=== PATIENT | male | born 1940 | race Caucasian/White ===

== ENCOUNTER → 2017-03-06 | Day surgery (SDC) | payer OTHER ==
[~2017-03-06] VITALS: Ht 180.3 cm; Wt 65.5 kg
[~2017-03-06] MED LIST: ACET-1256 PO; ALBUAER2 INH; ASPI-232 PO; ATOR-26 PO; CEPH500C PO; CIPROFLOXACIN 500 MG TAB PO SCH; CONRAY 30% 150ML BOTTLE ONE; DXY100 PO; IPRA1AER2 INH; LPR25 PO; NICO14DI9 TOP; NRV5 PO; NTRGSL/4 UT; NUTR-977 PO; PRED10TA PO; ROSU40TA PO; UMEC1AER INH; VGR50 PO; VLTG EXT; VNTHFA/IN INH; cephalexin PO
[2017-03-06 10:32] VITALS: BP 153/76; PULSE 93; TEMP 36.2; O2SAT 95; Ht 180.3 cm; Wt 65.5 kg
--- NOTE | 2017-03-06 10:47 | History and Physical ---
History Date of Service: Mar 06, 2017. Chief Complaint: left ureteral obstruction Primary Care Physician: Carlos Ricks M.D. Pt seen a urologist before?: Yes If yes, why?: left ureteral obstruction History of Present Illness Patient presents for routine stent change. he has chronic obstruction and has been managed with stent changes for years. He prefers to be done awake. His last stent is very uncomfortable. Laboratory Labs were reviewed and are within normal limits unless listed below. Labs are available in the chart and at [facility] Problem List Medical Problems: (1) Abdominal pain Status: Acute (2) Cardiac ischemia Status: Acute (3) GI bleeding Status: Acute (4) Hyperlipidemia Status: Chronic (5) Hypertension Status: Chronic (6) Substernal chest pain Status: Acute Past History Past Medical History: COPD, coronary artery disease, hypertension, vascular disease (severe, many angioplasties and bypasses for leg arterial insufficiency) Pt had a problem w anesthesia?: No Past Surgical History: other (multiple vascular surgeries, cabg) Family History Heart disease Social History Hx Tobacco Use In Past Year?: Yes (1 ppd 50 yrs ) Smokin pack/day Alcohol: socially Drug use: none Marital status: Housing status: lives with family Occupation status: retired Immunizations History of Influenza Vaccine: No History of Tetanus Vaccine?: Unknown History of Pneumococcal: Yes Pneumococcal Date: Dec 02, 2008 History of Hepatitis B Vaccine: Unknown History of MDRO No Allergies Coded Allergies: Simvastatin (Verified Adverse Reaction, Unknown, N&V, 03/06/17) Medications Home Medications: Home Meds and Scripts Medications Dose Route/Sig Max Daily Dose Days Date Category Dose Instructions Aspir-81 (Aspirin) 81 Mg Tab 1 Tab PO QAM 03/12/16 Reported Nitrostat (Nitroglycerin) 0.4 Mg Tab 0.4 Mg UT UD PRN 05/04/14 Reported Ventolin (Albuterol) Inh 1-2 Puffs INH Q4 PRN 05/04/14 Reported Crestor (Rosuvastatin Calcium) 40 Mg Tab 40 Mg PO 2 X WK 05/04/14 Reported Keflex (Cephalexin Monohydrate) 500 Mg Cap 500 Mg PO TID 03/19/12 Reported CHRONIC USE DUE TO HISTORY OF GRAFT. Review of Systems Review of Systems Constitutional: No chills, No fever Neurological: No dizzy, No numbness/tingling Endocrine: No excessive thirst, No tired/sluggish, No too cold, No too hot Gastrointestinal: + abdominal pain, + indigestion, No constipation, No nausea, No vomiting Cardiovascular: No chest pain, No palpitations, No swelling ankles/feet Male : + blood in urine, + frequent urination, + nocturia more than once/ night, + painful urination Physical Exam Physical Exam: General Appearance: WD/WN, no apparent distress, + thin Eyes: bilateral eyes normal inspection ENT: hearing grossly normal Respiratory/Chest: lungs clear, no respiratory distress, no accessory muscle use, + decreased breath sounds Cardiovascular: regular rate, rhythm, no murmur Extremities: non-tender, normal inspection, no pedal edema, no calf tenderness , normal capillary refill Neurologic/Psychiatric: alert, normal mood/affect, oriented x 3 Skin: normal color, warm/dry, no rash Assessment & Plan Assessment & Plan left ureteral obstruction plan cysto left stent exchange cipro orally now we have special ordered a 22-32 centimeter bard 6 fr stent as this has proven to be the most comfortable for him. need fluoro he signed consent/
[2017-03-06 12:11] VITALS: BP 155/67; PULSE 80; TEMP 36.5; O2SAT 93
--- NOTE | 2017-03-06 12:17 | [facility] Operative Report ---
Operative Report Operative Date Mar 06, 2017. Pre-Operative Diagnosis Left ureteral stricture Post-Operative Diagnosis same Procedure(s) Performed cysto left stent exchange Surgeon Dr. Rochelle Grant Communications Consultant Surgeon(s) none Estimated Blood Loss none Findings tortuous course of left ureter, low lying left kidney Fluids none Specimens none per surgeon Drains 6 fr 22-32 bard double J stent Anesthesia none Complication(s) None Disposition same day surgery Indications chronic left ureteral stricture managed for many years with ureteral stents. Plan stent exchange. he prefers no anesthetic. Description of Procedure Patient was placed in low lithotomy position. His genitals were prepped and draped in sterile fashion. Time out held with team. I placed a 18 fr flexible cystoscope to bladder. The urethra is unremarkable. The prostate is trilobar occlusive but short. The UOs are in normal location. Stent is clean. I placed a road runner wire up left ureter along side stent. I then removed and replace cystoscope and grasped tip of stent and withdrew it and found it to be intact. I then passed a 5 fr catheter over the wire to the upper ureter. I injected 5mL of dye to delinieate the renal pelvis and calyces. The wire is all the way up and the kidney is low lying, 2 inches at least below the costal margin. I replaced wire and placed a 22-32 centimeter 6 Fr double Bard J stent easily. I left bladder full and concluded case. He tolerated procedure well. He transferred to recovery under my escort, in stable condition. Plan: Home today oral pain meds as needed stent change in 6 months or so ASA 3 clean contaminated case 38 seconds fluoro cipro antibiotic sustainable design consultant I attest to the content of the Intraoperative Record and any orders documented therein. Any exceptions are noted below.
--- NOTE | 2017-03-06 12:22 | Discharge Instructions ---
Discharge Instructions Date of Service Mar 06, 2017. Admission Reason for Admission: Left Ureteral Stricture Discharge Discharge Diagnosis / Problem: left ureteral stricture Discharge Goals Goal(s): Improve function Activity Recommendations Activity Limitations: resume your previous activity Lifting Limitations: none Exercise/Sports Limitations: none May Resume Sexual Activity: when tolerated Shower/Bathe: no limitations Driving or Machine Use: no limitations . Instructions / Follow-Up Instructions / Follow-Up we will call to arrange next stent exchange Discharge Diet Recommended Diet: Regular Diet Fluid Restriction: None Procedures Procedures Performed: Cystoscopy, Left Stent Exchange Pending Studies Studies pending at discharge: no Medical Emergencies . Who to Call and When: Medical Emergencies: If at any time you feel your situation is an emergency, please call 911 immediately. . Non-Emergent Contact Non-Emergency issues call your: Urologist ([phone]) Call Non-Emergent contact if: temperature is above 100.5 . . "Provider Documentation" section prepared by Rochelle Grant. VTE Core Measure Inpt VTE Proph given/why not?: SCD's [place] Drug Monitoring Program Search Results: patient reviewed within database, no issues identified
--- NOTE | 2017-03-06 12:32 | DIAGNOSTIC IMAGING REPORT ---
RETROGRADE INCLUDES KUB HISTORY: LT STENT EXCHANGE FLUOROSCOPY TIME: 38 seconds. FINDINGS: 7 fluoroscopic spot images were submitted for review. Initial images demonstrate a left ureteral stent, aorta bilateral stent graft repair, and lumbar spinal fusion. There is retrograde contrast opacification of the left renal collecting system demonstrating hydronephrosis. This is followed by left ureteral stent exchange. The stent appears to be in good position. IMPRESSION: Fluoroscopy provided for left ureteral stent exchange.. Electronically signed by: Mark Barraza M.D. 03/06/2017 12:31 PM Dictated Date/Time: 03/06/2017 12:27 PM
[2017-03-06 12:37] VITALS: BP 153/67; PULSE 80; TEMP 36.5; O2SAT 93
== END | disposition home or self-care (01) ==
LOC: C.ACU 10:12
PROVIDERS: ATTEND Urology
DX: N13.5 Crossing vessel and stricture of ureter without hydronephrosis (principal); N28.89 Other specified disorders of kidney and ureter; I10 Essential (primary) hypertension; E78.5 Hyperlipidemia, unspecified; F17.210 Nicotine dependence, cigarettes, uncomplicated

== ENCOUNTER 2017-03-23 04:12 | Inpatient (IN) | payer OTHER ==
[~2017-03-23] VITALS: Ht 180.3 cm; Wt 66.0 kg
[2017-03-23] VITALS (9 sets, daily range): BP systolic 107–167; BP diastolic 68–80; PULSE 68–81; TEMP 36.5–37; O2SAT 90–99; Ht 180.3 cm; Wt 66.0 kg
[~2017-03-23 04:12] MED LIST changes: -ACET-1256 PO; -ATOR-26 PO; -CIPROFLOXACIN 500 MG TAB PO SCH; -CONRAY 30% 150ML BOTTLE ONE; -DXY100 PO; -IPRA1AER2 INH; -LPR25 PO; -NICO14DI9 TOP; -NRV5 PO; -NUTR-977 PO; -PRED10TA PO; -UMEC1AER INH; -VGR50 PO; -VLTG EXT; -VNTHFA/IN INH; -cephalexin PO
[2017-03-23] MEDS ORDERED: VNTHFA/IN INH (04:32)
[2017-03-23] MEDS ORDERED: ALBUT/IPRATROP 3MG/0.5MG NEB 3 ML VIAL INH STA (04:39)
[2017-03-23] MEDS ORDERED: METHYLPREDNISOLONE 125 MG VIAL IV STA (04:39)
[2017-03-23 05:02] LABS: BASO % 0.1 %; BASO ABS # 0.01 K/uL (0-0.2); COMPLETE YES; EOS % 1.2 %; HEMATOCRIT 42.3 % (42-52); IG% 0.1 %; LYMPH % 11.7 %; LYMPH ABS # 0.79 K/uL (1.2-3.4); MEAN CELL VOLUME 95.3 fL (80-100); MEAN CORPUSCULAR HGB CONC 33.6 g/dl (32-36); MEAN PLATELET VOLUME 11.5 fL (7.4-10.4); MONO % 7.7 %; NEUT % 79.2 %; PLATELET COUNT 117 K/uL (130-400); RED BLOOD COUNT 4.44 M/uL (4.7-6.1); WHITE BLOOD COUNT 6.78 K/uL (4.8-10.8)
[2017-03-23 05:23] LABS: BUN/CREATININE RATIO 20.7 (10-20); CREATININE 1.4 mg/dl (0.60-1.40); POTASSIUM 4.5 mmol/L (3.5-5.1)
[2017-03-23 05:28] LABS: ALB/GLOB RATIO 0.9 (0.9-2); CKMB/CK RATIO 2.7 (0-3.0)
[2017-03-23] MEDS ORDERED: NITROGLYCERIN 0.4 MG SL PER TAB CHARGE SL STA (05:42)
[2017-03-23] MEDS ORDERED: NITROGLYCERIN 0.4 MG SL PER TAB CHARGE ONE (05:48)
--- NOTE | 2017-03-23 06:38 | EMERGENCY ROOM VISIT NOTE ---
History Report prepared by Mary: Charisse Shah Under the Supervision of: Dr. Yadira Pettit D.O. First contact with patient: 04:23 Chief Complaint: RESPIRATORY PROBLEMS Stated Complaint: CAN'T BREATHE History of Present Illness The patient is a 77 year old male who presents to the Emergency Room with complaints of constant difficulty breathing beginning 3 days ago. The patient states that he has COPD and he was not able to sleep tonight so he decided to come in to the ED. He complains of sinus congestion, chest pain, "kidney pain", "lung pain", and a productive cough. He denies any abdominal pain. The patient denies taking steroids in the past and notes that he uses inhalers and has had pneumonia and bronchitis in the past. The patient reports that he drove himself here. Source of History: patient Onset: 3 days ago Position: other (respiratory) Quality: other ("difficulty") Timing: constant Associated Symptoms: No abdominal pain Note: He complains of sinus congestion, "kidney pain", "lung pain". Review of Systems See HPI for pertinent positives & negatives. A total of 10 systems reviewed and were otherwise negative. Past Medical & Surgical Medical Problems: (1) Aneurysm (2) ASCVD (arteriosclerotic cardiovascular disease) (3) Diverticulosis of colon (4) Femoral artery stenosis (5) Heart attack (6) Heart valve stenosis (7) History of cardioversion (8) Hx-TIA (transient ischemic attack) (9) Hyperlipidemia (10) Hypertension (11) Hypertension (12) Leakage of femoral arterial graft (13) Pacemaker (14) Thoracic aortic aneurysm (15) Unilateral inguinal hernia Surgical Problems: (1) Hx of CABG (2) Hx of CABG (3) S/P AAA repair Family History Heart disease Social History Smoking Status: Current Every Day Smoker Marital Status: Housing Status: lives with significant other Occupation Status: retired Current/Historical Medications Scheduled Aspirin (Aspir-81), 1 TAB PO QAM Cephalexin Monohydrate (Keflex), 500 MG PO TID Rosuvastatin Calcium (Crestor), 40 MG PO 2 X WK Scheduled PRN Albuterol Hfa (Ventolin Hfa), 1-2 PUFFS INH Q4 PRN for SOB/Wheezing Nitroglycerin (Nitrostat), 0.4 MG UT UD PRN for Chest Pain Allergies Coded Allergies: Simvastatin (Verified Adverse Reaction, Unknown, N&V, 03/23/17) Physical Exam Vital Signs Date Time Temp Pulse Resp B/P Pulse Ox O2 Delivery O2 Flow Rate FiO2 03/23/17 07:56 78 20 124/67 98 Nasal Cannula 1.0 03/23/17 07:44 99 Nasal Cannula 1.0 03/23/17 06:00 77 24 129/58 96 Nasal Cannula 2.0 03/23/17 05:50 82 20 138/65 98 Room Air 03/23/17 04:38 81 03/23/17 04:37 94 Nasal Cannula 2.0 03/23/17 04:35 89 Room Air 03/23/17 04:17 36.5 106 24 128/80 92 Room Air Physical Exam HEENT: Head - normocephalic and atraumatic Pupils are equal, round, and reactive to light. Extraocular eye muscles are intact, and sclera are anicteric. Nose - moist nasal mucosa without discharge. Mouth - moist buccal mucosa. Oropharynx is nonerythematous and there is no tonsillar exudate or edema noted. Neck: Supple; no JVD, nuchal rigidity, cervical lymphadenopathy. Heart: Regular rate and rhythm. There is a normal S1 and S2 with no murmurs, clicks, or gallops appreciated. Lungs: Rhonchi and wheezes in all lung martinez. Abdomen: Soft, completely nontender, nondistended, with good bowel sounds. There are no palpable pulsatile masses or hepatosplenomegaly. There is no guarding, rigidity, or rebound noted. Extremities: No evidence of cyanosis, clubbing, or edema. There are easily palpable peripheral pulses. Skin: warm and dry with good turgor and no rashes. Medical Decision & Procedures ER Provider Diagnostic Interpretation: X-ray results as stated below per interpretation by me: CHEST X-RAY: Cardiac pacemaker in place, chronic interstitial changes, no pleural effusions. Laboratory Results 03/23/17 04:45 Red Blood Count 4.44, Mean Corpuscular Volume 95.3, Mean Corpuscular Hemoglobin 32.0, Mean Corpuscular Hemoglobin Concent 33.6, Mean Platelet Volume 11.5, Neutrophils (%) (Auto) 79.2, Lymphocytes (%) (Auto) 11.7, Monocytes (%) (Auto) 7.7, Eosinophils (%) (Auto) 1.2, Basophils (%) (Auto) 0.1, Neutrophils # (Auto) 5.37, Lymphocytes # (Auto) 0.79, Monocytes # (Auto) 0.52, Eosinophils # (Auto) 0.08, Basophils # (Auto) 0.01 Test 03/23/17 04:45 White Blood Count 6.78 K/uL (4.8-10.8) Red Blood Count 4.44 M/uL (4.7-6.1) Hemoglobin 14.2 g/dL (14.0-18.0) Hematocrit 42.3 % (42-52) Mean Corpuscular Volume 95.3 fL (80-100) Mean Corpuscular Hemoglobin 32.0 pg (25-34) Mean Corpuscular Hemoglobin Concent 33.6 g/dl (32-36) Platelet Count 117 K/uL (130-400) Mean Platelet Volume 11.5 fL (7.4-10.4) Neutrophils (%) (Auto) 79.2 % Lymphocytes (%) (Auto) 11.7 % Monocytes (%) (Auto) 7.7 % Eosinophils (%) (Auto) 1.2 % Basophils (%) (Auto) 0.1 % Neutrophils # (Auto) 5.37 K/uL (1.4-6.5) Lymphocytes # (Auto) 0.79 K/uL (1.2-3.4) Monocytes # (Auto) 0.52 K/uL (0.11-0.59) Eosinophils # (Auto) 0.08 K/uL (0-0.5) Basophils # (Auto) 0.01 K/uL (0-0.2) RDW Standard Deviation 50.2 fL (36.4-46.3) RDW Coefficient of Variation 14.3 % (11.5-14.5) Immature Granulocyte % (Auto) 0.1 % Immature Granulocyte # (Auto) 0.01 K/uL (0.00-0.02) Total Bilirubin 0.4 mg/dl (0.2-1) Aspartate Amino Transf (AST/SGOT) 24 U/L (15-37) Alanine Aminotransferase (ALT/SGPT) 29 U/L (12-78) Alkaline Phosphatase 113 U/L (45-117) Total Creatine Kinase 102 U/L (39-308) Creatine Kinase MB 2.8 ng/ml (0.5-3.6) Creatine Kinase MB Ratio 2.7 (0-3.0) Pro-B-Type Natriuretic Peptide 1723 pg/ml (0-1800) Total Protein 7.6 gm/dl (6.4-8.2) Albumin 3.7 gm/dl (3.4-5.0) Globulin 3.9 gm/dl (2.5-4.0) Albumin/Globulin Ratio 0.9 (0.9-2) Laboratory results per my review. Medications Administered Medications (Trade) Dose Ordered Sig/Chelsey Route Start Time Stop Time Status Last Admin Dose Admin Albuterol/ Ipratropium (Duoneb) 3 ml NOW STAT INH 03/23/17 04:39 03/23/17 04:42 DC 03/23/17 04:57 3 ML Methylprednisolone Sodium Succinate (Solu-Medrol IV) 125 mg NOW STAT IV 03/23/17 04:39 03/23/17 04:42 DC 03/23/17 04:57 125 MG Nitroglycerin (Nitrostat Tab) 0.4 mg Q5M STAT SL 03/23/17 05:42 03/23/17 05:43 DC 03/23/17 05:45 0.4 MG Procedure 0439: Solu-Medrol IV 125mg IV, Duoneb 3ml INH. 0542: Nitrostat Tab 0.4mg SL. ECG Indication: SOB/dyspnea Rate (beats per minute): 77 Rhythm: normal sinus Findings: nonspecific-ST abn (Inferior and Lateral) Comparison ECG Date: 12/04/15 Change: no significant change ED Course 0430: Past medical records reviewed. The patient was evaluated in room B7. A complete history and physical exam was performed. Laboratory studies were drawn as above. 0439: Solu-Medrol IV 125mg IV, Duoneb 3ml INH. 0541: Breathing better after treatment but still has some chest pain. 0542: Nitrostat Tab 0.4mg SL. 0613: The patient's chest pain has gone away after the sublingual nitroglycerin. 0617: Discussed the patient's case with Dr. Mendez. The patient will be evaluated for further management. 0635: Upon reevaluation, I discussed findings and results with the patient. He verbalized agreement of the treatment plan. I spoke with Dr. Mendez of the [facility] Hospitalist Service. The patient will be evaluated for further management and care. Medical Decision The patient is a 77 year old male who presents to the ED with difficulty breathing. Differential diagnosis includes COPD exacerbation, pneumonia, bronchitics, hypoxia, CHF, sinus infection, and cardiac ischemia. LABS: No Leukocytosis Stable H&H BUN 29 Creatinine 1.4 Glucose 115 Troponin 0.021 BNP 1723 LFTs are Normal This is a 77-year-old male patient presents to the emergency department with multiple complaints including chest pain, shortness of breath, and urinary symptoms. EKG and cardiac enzymes were unremarkable. The patient had some improvement in his wrist trace symptoms with the IV Solu-Medrol and the nebulizer treatments. However, the patient is hypoxic without supplemental oxygen. I discussed the case with the hospitalist-Joo Hutson and they will evaluate for further management. Consults Time Called: 0615 Consulting Physician: Dr. Mendez Returned Call: 0617 Discussed the patient's case with Dr. Mendez. The patient will be evaluated for further management. Impression Primary Impression: Left sided chest pain Additional Impression: COPD exacerbation Scribe Attestation The scribe's documentation has been prepared under my direction and personally reviewed by me in its entirety. I confirm that the note above accurately reflects all work, treatment, procedures, and medical decision making performed by me. Departure Information Dispostion Being Evaluated By Hospitalist Referrals Carlos Ricks M.D. (PCP) Patient Instructions My [facility] Problem Qualifiers
--- NOTE | 2017-03-23 07:41 | DIAGNOSTIC IMAGING REPORT ---
CHEST 2 VIEWS ROUTINE CLINICAL HISTORY: Cough, wheeze, shortness of breath. COMPARISON STUDY: 09/18/2016 FINDINGS: The heart is normal in size. There are postsurgical changes of a midline sternotomy. There is a left subclavian dual-chamber central venous pacemaker. The patient is hyperinflated. There is subtle septal thickening which is likely chronic. There is no lobar consolidation. There are no pleural effusions.[ IMPRESSION: Hyperinflation. No evidence of focal pulmonary consolidation Electronically signed by: Alexandru Tellez M.D. 03/23/2017 7:39 AM Dictated Date/Time: 03/23/2017 7:37 AM
--- NOTE | 2017-03-23 07:51 | History and Physical ---
History & Physical Date & Time of Service: Mar 23, 2017 at 07:26 Chief Complaint: Can't Breathe Primary Care Physician: Carlos Ricks M.D. History of Present Illness Source: patient 77yo male with known COPD (dx about 2007) who presented early this AM with complaints of dyspnea, cough, congestion, yellow sputum production, and subjective fever starting Saturday of this week. No travel or sick contacts. No rigors. Last pm his breathing worsened considerably and he became even more dyspneic, prompting him to come to the ER at [facility]. This am he experienced some pain in his chest but this occurred while he was coughing. He notes that the chest discomfort was NOT similar to pain he had with a prior PA. He continues to smoke 1 ppd of cigarettes. Past Medical/Surgical History PMH: 1. COPD - dx about 2007 2. CAD s/p PA x 3 3. thoracic aortic aneurysm 4. chronic tobacco dependence 5. PAD 6. femoral artery stenosis s/p multiple surgeries 7. h/o TIA ? (but no stroke) 8. had seizure in 1985 9. h/o cardioversion (or defibrillation) in the setting of an acute PA 10. HTN 11. hyperlipidemia 12. 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 pacemaker implantation - Dr. Levi Panda - 2011 2. multiple surgeries on femoral artery 3 s/p CABG - [facility] 3-vessel 4. inguinal hernia repair 5. AAA repair 6. multiple back surgeries (3) 7. benign tumor removal from scalp 8. nasal surgery 9. left ureteral stent placement - multiple - (Dr. 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[employer]) Immunizations History of Influenza Vaccine: No History of Tetanus Vaccine?: Unknown History of Pneumococcal: Yes Pneumococcal Date: Dec 02, 2008 History of Hepatitis B Vaccine: Unknown Multi-Drug Resistant Organisms History of MDRO: No Allergies Coded Allergies: Simvastatin (Verified Adverse Reaction, Unknown, N&V, 03/23/17) Home Medications Scheduled Aspirin (Aspir-81), 1 TAB PO QAM Cephalexin Monohydrate (Keflex), 500 MG PO TID Rosuvastatin Calcium (Crestor), 40 MG PO 2 X WK Scheduled PRN Albuterol Hfa (Ventolin Hfa), 1-2 PUFFS INH Q4 PRN for SOB/Wheezing Nitroglycerin (Nitrostat), 0.4 MG UT UD PRN for Chest Pain Review of Systems Constitutional: + fatigue, + fever, + weight loss (10 pounds - last 6 weeks), No chills ENT: + nasal symptoms, No trouble swallowing Respiratory: + cough, + dyspnea at rest, + dyspnea on exertion, + shortness of breath, + sputum, + wheezing, No hemoptysis Cardiovascular: + chest pain, + orthopnea Abdomen: No GI bleeding, No diarrhea, No nausea, No pain, No vomiting Musculoskeletal: No joint pain Genitourinary - Male: + urinary frequency (nocturia - 3x's), No dysuria, No hematuria Neurologic: No memory loss, No numbness/tingling Psychiatric: No anxiety, No depression symptoms Endocrine: + fatigue Hematologic / Lymphatic: + abnormal bleeding/bruising Integumentary: No rash Physical Exam Vital Signs Date Time Temp Pulse Resp B/P Pulse Ox O2 Delivery O2 Flow Rate FiO2 03/23/17 06:00 77 24 129/58 96 Nasal Cannula 2.0 03/23/17 05:50 82 20 138/65 98 Room Air 03/23/17 04:38 81 03/23/17 04:37 94 Nasal Cannula 2.0 03/23/17 04:35 89 Room Air 03/23/17 04:17 36.5 106 24 128/80 92 Room Air General Appearance: + mild distress (only with coughing fits; otherwise NAD) Head: normocephalic, atraumatic Eyes: PERRL, sclerae normal ENT: hearing grossly normal, TMs normal, pharynx normal, + nasal congestion Neck: supple, no adenopathy, thyroid normal, no JVD, trachea midline, + pertinent finding (b/l carotid bruits) Respiratory/Chest: chest non-tender, no respiratory distress, no accessory muscle use, + decreased breath sounds, + rhonchi (extensive), + wheezing ( extensive) Cardiovascular: regular rate, rhythm, no gallop, + systolic murmur (2/6 RUSB and LUSB), + pertinent finding (large midline sternal scar) Abdomen/GI: normal bowel sounds, non tender, soft, no organomegaly, no pulsatile mass, + pertinent finding (large midline abdominal scar) Back: normal inspection Extremities/Musculoskelatal: no pedal edema Neurologic/Psych: no motor/sensory deficits, alert, normal mood/affect, normal reflexes, oriented x 3 Skin: no rash Lymphatic: no adenopathy (cervical) vascular/pulses - feet about 1+ b/l Diagnostics Laboratory Results Results Past 24 Hours Test 03/23/17 04:45 Range/Units White Blood Count 6.78 4.8-10.8 K/uL Red Blood Count 4.44 4.7-6.1 M/uL Hemoglobin 14.2 14.0-18.0 g/dL Hematocrit 42.3 42-52 % Mean Corpuscular Volume 95.3 80-100 fL Mean Corpuscular Hemoglobin 32.0 25-34 pg Mean Corpuscular Hemoglobin Concent 33.6 32-36 g/dl Platelet Count 117 130-400 K/uL Mean Platelet Volume 11.5 7.4-10.4 fL Neutrophils (%) (Auto) 79.2 % Lymphocytes (%) (Auto) 11.7 % Monocytes (%) (Auto) 7.7 % Eosinophils (%) (Auto) 1.2 % Basophils (%) (Auto) 0.1 % Neutrophils # (Auto) 5.37 1.4-6.5 K/uL Lymphocytes # (Auto) 0.79 1.2-3.4 K/uL Monocytes # (Auto) 0.52 0.11-0.59 K/uL Eosinophils # (Auto) 0.08 0-0.5 K/uL Basophils # (Auto) 0.01 0-0.2 K/uL RDW Standard Deviation 50.2 36.4-46.3 fL RDW Coefficient of Variation 14.3 11.5-14.5 % Immature Granulocyte % (Auto) 0.1 % Immature Granulocyte # (Auto) 0.01 0.00-0.02 K/uL Sodium Level 139 136-145 mmol/L Potassium Level 4.5 3.5-5.1 mmol/L Chloride Level 105 98-107 mmol/L Carbon Dioxide Level 28 21-32 mmol/L Anion Gap 6.0 3-11 mmol/L Blood Urea Nitrogen 29 7-18 mg/dl Creatinine 1.40 0.60-1.40 mg/dl Est Creatinine Clear Calc Drug Dose 40.8 ml/min Estimated GFR () 55.4 Estimated GFR (Non- 47.8 BUN/Creatinine Ratio 20.7 10-20 Random Glucose 115 70-99 mg/dl Calcium Level 9.0 8.5-10.1 mg/dl Total Bilirubin 0.4 0.2-1 mg/dl Aspartate Amino Transf (AST/SGOT) 24 15-37 U/L Alanine Aminotransferase (ALT/SGPT) 29 12-78 U/L Alkaline Phosphatase 113 45-117 U/L Total Creatine Kinase 102 39-308 U/L Creatine Kinase MB 2.8 0.5-3.6 ng/ml Creatine Kinase MB Ratio 2.7 0-3.0 Troponin I 0.021 0-0.045 ng/ml Pro-B-Type Natriuretic Peptide 1723 0-1800 pg/ml Total Protein 7.6 6.4-8.2 gm/dl Albumin 3.7 3.4-5.0 gm/dl Globulin 3.9 2.5-4.0 gm/dl Albumin/Globulin Ratio 0.9 0.9-2 Diagnostic Radiology cxr - hyperinflation, small heart shadow, no infiltrates (my reading) EKG EKG (my reading) - NSR, LVH by voltage criteria, rather large R wave V2, Q waves inferior leads, mild ST segment downsloping inferior leads (old/chronic), no acute ST changes; minimal ST segment downsloping 1 and AVL - also old/chronic Impression Assessment and Plan Pleasant 77yo male with numerous medical problems including COPD, CAD s/p multiple MIs, s/p CABG, PAD with multiple revascularization procedures on legs, pacemaker status, HTN, hyperlipidemia, CKD stage 3, and ongoing tobacco dependence presenting with acute hypoxic respiratory failure 2nd to COPD exacerbation. 1. acute hypoxic resp failure 2nd to COPD exacerbation - was loaded with IV solumedrol in the ER. Will continue IV steroids with 40mg IV q8h. Scheduled duonebs q6h. Incentive spirometry, mucinex, NC O2 as needed, check rapid flu test. Since there is no pneumonia on cxr but is having sputum production will use narrow spectrum antibiotics in the form of oral doxycycline 100mg BID. He has been counseled about the importance of smoking cessation. He is in the contemplative phase of such. 2. chest pain - his pain was not typical for his normal CAD pain. It occurred in the midst of a significant coughing spell. [id number] he had more chest discomfort in the ER requiring SL nitro with ultimate resolution of such. Will check 2 more troponins today and place on telemetry to be complete. 3. CAD - continue aspirin. Unsure why he is not on BB, etc. 4. CKD stage 3 - creatinine is at baseline. Repeat BMP in am for stability. 5. mild thrombocytopenia - check b12/folate today. Repeat platelets in 1-2 days for stability. 6. known PAD - continue aspirin, needs to quit smoking. 7. h/o seizure in the - does not take anti-epileptics. 8. DVT proph - lovenox 40mg daily. 9. HTN - well-controlled at this time OFF of any medication. 10. tobacco dependence - he declines any nicotine patch at this time. Counseled to quit. 11. weight loss - in light of extensive smoking history he needs work-up for this. Not unreasonable to perform CT chest in future to r/o malignancy. 12. h/o thoracic aortic aneurysm and h/o AAA - he reports repair of the AAA, but I am unclear if he has ever had repair of the former issue. Will look at outpatient records. 12/2015 CTA protocol of the chest demonstrated the thoracic aortic aneurysm and at that time was 6cm. 13. chronic keflex use - patient reports this is chronic suppressive therapy for ?infection of a graft in his femoral artery. He has had all of his PAD management at [facility] so I cannot confirm this. Regardless I will continue the keflex as he has been taking this chronically. Advanced Directives Existing Advance Directive: Yes Existing Living Will: Yes Existing Power of Shotblast Operator: Yes Resuscitation Status DO NOT RESUSCITATE VTE Prophylaxis VTE Risk Assessment Done? Y/N: Yes Risk Level: Moderate Given or contraindicated: Enoxaparin (Lovenox)SQ Social Service Consult None Apply Note total visit time about 60 minutes Additional Copies To Carlos Ricks M.D.
[2017-03-23] MEDS ORDERED: NITROGLYCERIN 0.4 MG SL PER TAB CHARGE SL PRN (08:15)
[2017-03-23] MEDS ORDERED: ACETAMINOPHEN 325 MG TAB PO PRN (08:15)
[2017-03-23] MEDS ORDERED: ALUMINUM/MAGNESIUM/SIMETH (MAALOX MAX) 30 ML UDC PO PRN (08:15)
[2017-03-23] MEDS ORDERED: BENZONATATE 100MG CAP PO PRN (08:15)
[2017-03-23] MEDS: ALBUT/IPRATROP 3MG/0.5MG NEB 3 ML VIAL INH SCH ×4 (08:15→19:52)
[2017-03-23] MEDS ORDERED: ONDANSETRON INJ 2 MG/ML 2 ML VIAL IV PRN (08:15)
[2017-03-23] MEDS ORDERED: MAGNESIUM HYDROXIDE SUSP 30 ML UDC PO PRN (08:15)
[2017-03-23 08:37] LABS: URINE APPEARANCE CLEAR (CLEAR); URINE BILIRUBIN NEG (NEG); URINE COLOR YELLOW; URINE EPITHELIAL CELL AUTO 20-30 /lpf (0-5); URINE NITRITE NEG (NEG); URINE SPECIFIC GRAVITY 1.014 (1.000-1.030); UROBILINOGEN NEG (NEG)
[2017-03-23 08:38] LABS: MANUAL MICROSCOPIC REQUIRED? NO; REVIEW REQ? NO; SULFASALICYLIC ACID POS (NEG)
[2017-03-23] MEDS ORDERED: ALBUT/IPRATROP 3MG/0.5MG NEB 3 ML VIAL INH PRN (08:45)
[2017-03-23] MEDS: ASPIRIN 81 MG ECTAB PO SCH (11:19)
[2017-03-23] MEDS: CEPHALEXIN MONOHYDRATE 500 MG CAP PO SCH ×3 (11:20→19:24)
[2017-03-23] MEDS: GUAIFENESIN 600 MG TABCR PO SCH ×2 (11:20→19:25)
[2017-03-23] MEDS: DOXYCYCLINE HYCLATE 100 MG CAP PO SCH ×2 (11:21→19:25)
[2017-03-23 11:38] LABS: PARTIAL THROMBOPLASTIN RATIO 1.2; PROTHROMBIN TIME (PATIENT) 10.4 SECONDS (9.0-12.0)
[2017-03-23] MEDS: LACTOBACILLUS ACIDOPHILUS (FLORANEX) TAB PO SCH ×2 (12:34→17:24)
[2017-03-23] MEDS: METHYLPREDNISOLONE IV 40 MG in SYRINGE 0 ML IV SCH ×2 (12:35→19:24)
[2017-03-23] MEDS: ENOXAPARIN 40 MG/0.4 ML SYR SC SCH (14:00)
[2017-03-24] VITALS (14 sets, daily range): BP systolic 132–189; BP diastolic 67–91; PULSE 0–92; TEMP 36.6–37; O2SAT 91–97
[2017-03-24] MEDS: METHYLPREDNISOLONE IV 40 MG in SYRINGE 0 ML IV SCH ×2 (03:43→17:31)
[2017-03-24 07:03] LABS: BUN/CREATININE RATIO 28.8 (10-20); CREATININE 1.4 mg/dl (0.60-1.40); POTASSIUM 5.2 mmol/L (3.5-5.1)
[2017-03-24] MEDS: ALBUT/IPRATROP 3MG/0.5MG NEB 3 ML VIAL INH SCH ×4 (07:17→19:28)
[2017-03-24] MEDS: DOXYCYCLINE HYCLATE 100 MG CAP PO SCH ×2 (08:01→19:44)
[2017-03-24] MEDS: ASPIRIN 81 MG ECTAB PO SCH (08:01)
[2017-03-24] MEDS: LACTOBACILLUS ACIDOPHILUS (FLORANEX) TAB PO SCH ×3 (08:02→17:30)
[2017-03-24] MEDS: GUAIFENESIN 600 MG TABCR PO SCH ×2 (08:02→19:44)
[2017-03-24] MEDS: CEPHALEXIN MONOHYDRATE 500 MG CAP PO SCH ×3 (08:03→19:44)
[2017-03-24] MEDS: METOPROLOL TARTRATE 25 MG TAB PO SCH ×2 (08:39→19:45)
[2017-03-24 11:56] LABS: PLATELET COUNT 124 K/uL (130-400)
[2017-03-24] MEDS: ENOXAPARIN 40 MG/0.4 ML SYR SC SCH (14:00)
[2017-03-24] MEDS ORDERED: METOPROLOL TARTRATE 50 MG TAB PO STA (15:56)
[2017-03-24] MEDS ORDERED: NURSING VERBAL MED ORDER ONE (16:00)
[2017-03-25 00:07] VITALS: BP 171/75; PULSE 77; TEMP 36.8; O2SAT 90
--- NOTE | 2017-03-25 00:09 | Progress Note ---
Subjective Date of Service: Mar 24, 2017. Subjective Pt evaluation today including: conversation w/ patient, physical exam, chart review, lab review, review of inpatient medication list Pain: denies any chest pain PO Intake: good/improved Voiding: no voiding problems telemetry stable overnight with pacing only pulmonary status improved; less dyspnea, less cough - but still having yellow sputum production overall feels better walking in the hallway with minimal dyspnea Problem List Medical Problems: (1) Abdominal pain Status: Acute (2) Cardiac ischemia Status: Acute (3) COPD exacerbation Status: Acute (4) GI bleeding Status: Acute (5) Hyperlipidemia Status: Chronic (6) Hypertension Status: Chronic (7) Left sided chest pain Status: Acute (8) Substernal chest pain Status: Acute Review of Systems Constitutional: No chills, No fever Respiratory: + cough, + dyspnea on exertion, + sputum, + wheezing, No dyspnea at rest, No hemoptysis Cardiac: No chest pain, No orthopnea Abdomen: No pain Objective Vital Signs Date Time Temp Pulse Resp B/P Pulse Ox O2 Delivery O2 Flow Rate FiO2 03/24/17 20:00 91 Room Air 03/24/17 19:45 64 169/75 91 03/24/17 19:30 63 14 92 Room Air 03/24/17 16:04 87 152/67 03/24/17 16:00 Room Air 03/24/17 15:26 37.0 88 16 189/80 97 Room Air 03/24/17 15:24 36.6 92 16 175/91 95 Room Air 03/24/17 15:00 0 16 96 Room Air 03/24/17 11:36 37.0 62 16 132/67 94 03/24/17 11:17 62 16 95 Room Air 03/24/17 08:00 Room Air 03/24/17 07:17 86 16 91 Room Air 03/24/17 07:13 36.9 89 16 166/75 92 03/24/17 04:00 95 Room Air 03/24/17 03:41 37.0 90 18 148/77 91 Room Air 03/24/17 00:00 95 Room Air Physical Exam General Appearance: no apparent distress ENT: pharynx normal Neck: no JVD Respiratory/Chest: no respiratory distress, no accessory muscle use, + decreased breath sounds (bases with focal rhonchi at bases), + wheezing (mild end-exp) Cardiovascular: regular rate, rhythm, no gallop, + systolic murmur (1-2/6 LUSB) Abdomen: normal bowel sounds, non tender, soft, no organomegaly Extremities: no pedal edema Neurologic/Psychiatric: alert, oriented x 3 Laboratory Results Last 24 Hours Test 03/24/17 06:10 03/24/17 11:40 Sodium Level 136 mmol/L Potassium Level 5.2 mmol/L 4.9 mmol/L Chloride Level 104 mmol/L Carbon Dioxide Level 24 mmol/L Anion Gap 8.0 mmol/L Blood Urea Nitrogen 40 mg/dl Creatinine 1.40 mg/dl Est Creatinine Clear Calc Drug Dose 40.6 ml/min Estimated GFR () 55.4 Estimated GFR (Non- 47.8 BUN/Creatinine Ratio 28.8 Random Glucose 131 mg/dl Calcium Level 9.0 mg/dl Platelet Count 124 K/uL Assessment and Plan Pleasant 77yo male with numerous medical problems including COPD, CAD s/p multiple MIs, s/p CABG, PAD with multiple revascularization procedures on legs, pacemaker status, HTN, hyperlipidemia, CKD stage 3, and ongoing tobacco dependence who presented with acute hypoxic respiratory failure 2nd to COPD exacerbation. 1. acute hypoxic resp failure 2nd to COPD exacerbation - former resolved, latter improved. Decrease IV steroids to BID dosing. Cont doxycycline, day #2/7. Cont pulmonary toilet, incentive ahmet, nebs. 2. chest pain - 3 troponins negative. His pain was not typical for his normal CAD pain. It occurred in the midst of a significant coughing spell. Suspect it was pulmonary/musculoskeletal in origin. 3. CAD - continue aspirin. Adding BB for CAD and HTN control. 4. CKD stage 3 - creatinine is at baseline. Repeat BMP stable today. 5. mild thrombocytopenia - b12/folate normal. Repeat platelet count today stable. 6. known PAD - continue aspirin, needs to quit smoking. 7. h/o seizure in the 1980s - does not take anti-epileptics. 8. DVT proph - lovenox 40mg daily. 9. HTN - uncontrolled; add metoprolol 25mg BID; titrate if necessary. IV steroids likely making the BPs worse. 10. tobacco dependence - he declines any nicotine patch at this time. Counseled to quit. 11. weight loss - in light of extensive smoking history he needs work-up for this. Not unreasonable to perform CT chest as outpatient in near future to r/o malignancy. 12. h/o thoracic aortic aneurysm and h/o AAA - he reports repair of the AAA, but I am unclear if he has ever had repair of the former issue. 12/2015 CTA protocol of the chest demonstrated the thoracic aortic aneurysm and at that time was 6cm. Will need f/u for this. 13. chronic keflex use - patient reports this is chronic suppressive therapy for ?infection of a graft in his femoral artery. He has had all of his PAD management at [facility] so I cannot confirm this. Regardless will continue the keflex. left message for his son on 03/24/17 anticipate d/c to home on 03/25 may need two-step to ensure no need for O2 with activity (O2 sats at rest are normal)
[2017-03-25] MEDS: METHYLPREDNISOLONE IV 40 MG in SYRINGE 0 ML IV SCH (05:29)
[2017-03-25 07:08] VITALS: PULSE 71; O2SAT 92
[2017-03-25] MEDS: ALBUT/IPRATROP 3MG/0.5MG NEB 3 ML VIAL INH SCH ×2 (07:08→11:08)
[2017-03-25 07:33] VITALS: BP 176/91; PULSE 81; TEMP 36.9; O2SAT 94
[2017-03-25] MEDS: CEPHALEXIN MONOHYDRATE 500 MG CAP PO SCH (08:35)
[2017-03-25] MEDS: METOPROLOL TARTRATE 25 MG TAB PO SCH (08:36)
[2017-03-25] MEDS: GUAIFENESIN 600 MG TABCR PO SCH (08:36)
[2017-03-25] MEDS: ASPIRIN 81 MG ECTAB PO SCH (08:36)
[2017-03-25] MEDS: LACTOBACILLUS ACIDOPHILUS (FLORANEX) TAB PO SCH ×2 (08:37→11:54)
[2017-03-25] MEDS: DOXYCYCLINE HYCLATE 100 MG CAP PO SCH (08:37)
[2017-03-25] MEDS ORDERED: PRED10TA PO (08:48)
[2017-03-25] MEDS ORDERED: DXY100 PO (08:48)
[2017-03-25] MEDS ORDERED: LPR25 PO (08:48)
--- NOTE | 2017-03-25 08:55 | Discharge Instructions ---
Discharge Instructions Date of Service Mar 25, 2017. Admission Reason for Admission: Copd Exacerbation Discharge Discharge Diagnosis / Problem: COPD exacerbation Discharge Goals Goal(s): Decrease discomfort, Improve function, Diagnostic testing, Therapeutic intervention, Prevent Disease Progression Activity Recommendations Activity Limitations: resume your previous activity . Instructions / Follow-Up Instructions / Follow-Up New/changed medications: 1. Metoprolol 25 mg by mouth twice per day- begin this medication this evening (03/25) This medication has been added to help manage your high blood pressure 2. Doxycycline 100 mg by mouth twice per day until prescription is complete- begin this medication this evening (03/25) This medication is an antibiotic used to help treat your respiratory symptoms 3. Prednisone wu- 40 mg by mouth daily x2 days, then 30 mg by mouth daily x2 days, then 20 mg by mouth x2 days, then 10 mg by mouth x2 days, then 5 mg by mouth x 2 days- begin this medications tomorrow (03/26) This medication is a steroid used to help treat your respiratory symptoms Resume all other regular home medications as prescribed to you It is recommended your log your BPs 2x daily until follow-up with your PCP. Take this log to your PCP appointment- they will further manage your blood pressure control As for your weight loss, it is recommended your follow-up with your PCP to further evaluate your sudden weight loss Please follow-up with your PCP within 5-7 days Please follow-up/keep all of your subspecialty appointments Current Hospital Diet Patient's current hospital diet: AHA Diet (Heart Healthy) Discharge Diet Recommended Diet: AHA Diet (Heart Healthy) Pending Studies Studies pending at discharge: no Laboratory Results Last Resulted CBC 03/23/17 04:45 Red Blood Count 4.44, Mean Corpuscular Volume 95.3, Mean Corpuscular Hemoglobin 32.0, Mean Corpuscular Hemoglobin Concent 33.6, Mean Platelet Volume 11.5, Neutrophils (%) (Auto) 79.2, Lymphocytes (%) (Auto) 11.7, Monocytes (%) (Auto) 7.7, Eosinophils (%) (Auto) 1.2, Basophils (%) (Auto) 0.1, Neutrophils # (Auto) 5.37, Lymphocytes # (Auto) 0.79, Monocytes # (Auto) 0.52, Eosinophils # (Auto) 0.08, Basophils # (Auto) 0.01 03/24/17 11:40 Last Resulted BMP 03/24/17 06:10 03/24/17 11:40 Last 24 Hours Test 03/24/17 11:40 Platelet Count 124 K/uL Potassium Level 4.9 mmol/L Medical Emergencies . Who to Call and When: Medical Emergencies: If at any time you feel your situation is an emergency, please call 911 immediately. . Non-Emergent Contact Non-Emergency issues call your: Primary Care Provider . . "Provider Documentation" section prepared by Naty Clark. . VTE Core Measure Inpt VTE Proph given/why not?: Enoxaparin (Lovenox)SQ
--- NOTE | 2017-03-25 09:12 | Discharge Summary ---
Discharge Summary Date of Service Mar 25, 2017. Discharge Summary Admission Date: Mar 23, 2017 at 08:08 Discharge Date: Mar 25, 2017 Discharge Disposition: Home with services Principal Diagnosis: COPD exacerbation Problems/Secondary Diagnoses: Acute hypoxic respiratory failure, secondary to acute on chronic COPD exacerbation CAD CKD stage 3- STABLE Mild thrombocytopenia- STABLE Known PAD h/o seizure in the HTNt Tobacco dependence Weight loss h/o thoracic aortic aneurysm and h/o AAA Chronic Keflex use Dyslipidemia Immunizations: Have You Had Influenza Vaccine: No History of Tetanus Vaccine?: Unknown History of Pneumococcal: Yes Pneumococcal Date: Dec 02, 2008 History of Hepatitis B Vaccine: Unknown Procedures: CHEST 2 VIEWS ROUTINE CLINICAL HISTORY: Cough, wheeze, shortness of breath. COMPARISON STUDY: 09/18/2016 FINDINGS: The heart is normal in size. There are postsurgical changes of a midline sternotomy. There is a left subclavian dual-chamber central venous pacemaker. The patient is hyperinflated. There is subtle septal thickening which is likely chronic. There is no lobar consolidation. There are no pleural effusions.[ IMPRESSION: Hyperinflation. No evidence of focal pulmonary consolidation Electronically signed by: Alexandru Tellez M.D. 03/23/2017 7:39 AM Dictated Date/Time: 03/23/2017 7:37 AM The status of this report is Signed. Draft = Not yet reviewed or approved by Radiologist. Signed = Reviewed and approved by Radiologist. Medication Reconciliation New Medications: Prednisone Tab (Prednisone) 10 Mg Tab 10 MG PO UD for 10 Days, #17 TAB 40 mg x2 days, 30 mg x2 days, 20 mg x2 days, 10 mg x2 days, 5 mg x2 days Doxycycline Hyclate (Doxycycline Hyclate) 100 Mg Cap 100 MG PO BID for 5 Days, #10 CAP Metoprolol Tartrate (Lopressor) 25 Mg Tab 25 MG PO BID for 30 Days, #60 TAB Continued Medications: Albuterol Hfa (Ventolin Hfa) 200 Puffs/14084 Mcg Aers 1-2 PUFFS INH Q4 PRN for SOB/Wheezing Aspirin (Aspir-81) 81 Mg Tab 1 TAB PO QAM, TAB 3 Refills Cephalexin Monohydrate (Keflex) 500 Mg Cap 500 MG PO TID, 0 Refills CHRONIC USE DUE TO HISTORY OF GRAFT. Nitroglycerin (Nitrostat) 0.4 Mg Tab 0.4 MG UT UD PRN for Chest Pain Rosuvastatin Calcium (Crestor) 40 Mg Tab 40 MG PO 2 X WK Referrals At Discharge Follow up Referrals: Family Practice Referral - Within 1 Week with Carlos Ricks M.D. Discharge Exam Review of Systems: Constitutional: No chills, No fatigue, No fever, No sweats, No weakness ENT: No hearing loss Respiratory: + cough, + sputum, No hemoptysis, No shortness of breath Cardiovascular: No chest pain, No edema, No palpitations Abdomen: No constipation, No diarrhea, No nausea, No pain, No vomiting Musculoskeletal: No calf pain, No joint pain, No muscle pain, No swelling Genitourinary - Male: No dysuria, No hematuria Neurologic: No numbness/tingling, No weakness Psychiatric: No anxiety, No depression symptoms Endocrine: No fatigue Hematologic / Lymphatic: No abnormal bleeding/bruising Integumentary: No itch, No new/changing skin lesions, No rash Physical Exam: General Appearance: no apparent distress, + thin Eyes: normal inspection, PERRL ENT: hearing grossly normal Neck: supple Respiratory/Chest: no respiratory distress, no accessory muscle use, + decreased breath sounds (throughout all lung martinez ), + crackles (bilateral lung bases ), + rhonchi (noted sparsely throughout lung martinez ) Cardiovascular: regular rate, rhythm, + systolic murmur Abdomen / GI: normal bowel sounds, non tender, soft Extremities: no calf tenderness, no pedal edema Neurologic/Psychiatric: alert, normal mood/affect, oriented x 3 Skin: normal color, warm/dry, no rash Hospital Course Pleasant 77 y/o male with numerous medical problems including COPD, CAD s/p multiple MIs, s/p CABG, PAD with multiple revascularization procedures on legs, pacemaker status, HTN, hyperlipidemia, CKD stage 3, and ongoing tobacco dependence who presented with acute hypoxic respiratory failure 2nd to COPD exacerbation. Acute hypoxic respiratory failure, secondary to acute on chronic COPD exacerbation: - [facility] -- Transferred to med/surg on 03/24 - Treated IV steroids- weaned to Prednisone PO wu at discharge - Doxycycline 100 mg BID x7 days - Pulmonary toilet, incentive spirometer, DuoNebs - O2 protocol, wean as tolerated -- 2 step performed prior to discharge- ambulated w/ O2 sat 88% or greater Chest pain, likely secondary to pulmonary/musculoskeletal- RESOLVED: - Monitored on tele w/ no acute events - Trend cardiac enzymes- negative - EKG- no significant acute changes - Has f/u w/ Dr. Ricks in July CAD: - Continue ASA - Metoprolol added for HTN control and CAD CKD stage 3- STABLE: Follow PRP Mild thrombocytopenia- STABLE: b12/folate WNL Known PAD: Continue ASA h/o seizure in the 1980s: Does NOT take anti-epileptics HTN- UNCONTROLLED, ?secondary to steroid treatment: - Started Metoprolol 25mg BID on 03/24 - Instructed patient log BPs and f/u w/ PCP for further BP management Dyslipidemia: Continue statin therapy Tobacco dependence: - Denies need for nicotine patch - Smoking cessation counselling Weight loss (per patient, 10 pounds in last 6 weeks): Instructed patient to f/u w/ PCP to further evaluate weight loss h/o thoracic aortic aneurysm and h/o AAA- 12/2015 CTA protocol of the chest demonstrated the thoracic aortic aneurysm and at that time was 6cm: - Per patient, had follow-up w/ provider 2 months ago- encouraged to have continued close follow-ups Chronic Keflex use, patient reports this is chronic suppressive therapy for ? infection of a graft in his femoral artery: Continue Keflex GI Prophylaxis: Maalox PRN, IV Zofran PRN, Colace and/or Milk of Mag PRN DVT prophylaxis: Lovenox 40 mg SQ q24 hrs Code Status: LEVEL V, DNR Dispo: Discharge to home Total Time Spent: Greater than 30 minutes This includes examination of the patient, discharge planning, medication reconciliation, and communication with other providers. Discharge Instructions Please refer to the electronic Patient Visit Report (Discharge Instructions) for additional information. Follow-Up Please follow-up with your PCP within 5-7 days Please follow-up/keep all of your subspecialty appointments Additional Copies To Carlos Ricks M.D.
[2017-03-25 11:09] VITALS: PULSE 89; O2SAT 95
[2017-03-25] MEDS ORDERED: IPRA1AER2 INH (12:44)
[2017-03-25] MEDS ORDERED: NICO14DI9 TOP (12:44)
[2017-03-25 12:49] VITALS: BP 176/91; PULSE 89; TEMP 36.9; O2SAT 95
[2017-06-16] MEDS ORDERED: VLTG EXT (10:32)
[2017-06-16] MEDS ORDERED: NRV5 PO (10:32)
[2017-10-04] MEDS ORDERED: UMEC1AER INH (10:50)
[2017-10-04] MEDS ORDERED: VGR50 PO (10:51)
[2017-10-04] MEDS ORDERED: ATOR-26 PO (10:51)
[2017-10-04] MEDS ORDERED: ACET-1256 PO (10:52)
[2017-10-04] MEDS ORDERED: NUTR-977 PO (10:53)
[2017-10-16] MEDS ORDERED: cephalexin PO (12:09)
== END 2017-03-25 13:16 | disposition home or self-care (01) | DRG 190 ==
LOC: ENRESERVTM → ENRESERVDT → C.EDB 04:13 → C.MED 08:08
PROVIDERS: ADMIT Internal Medicine; ATTEND Hospitalist
DX: J44.1 Chronic obstructive pulmonary disease with (acute) exacerbation (principal); J96.01 Acute respiratory failure with hypoxia; I25.10 Atherosclerotic heart disease of native coronary artery without angina pectoris; N18.3 Chronic kidney disease, stage 3 (moderate); D69.6 Thrombocytopenia, unspecified; I71.2 Thoracic aortic aneurysm, without rupture; F17.210 Nicotine dependence, cigarettes, uncomplicated; R07.9 Chest pain, unspecified; I73.9 Peripheral vascular disease, unspecified; E78.5 Hyperlipidemia, unspecified; I12.9 Hypertensive chronic kidney disease with stage 1 through stage 4 chronic kidney disease, or unspecified chronic kidney disease; Y92.230 Patient room in hospital as the place of occurrence of the external cause; R63.4 Abnormal weight loss; T38.0X5A Adverse effect of glucocorticoids and synthetic analogues, initial encounter; Z66 Do not resuscitate; Z96.0 Presence of urogenital implants; I25.2 Old myocardial infarction; Z95.0 Presence of cardiac pacemaker; Z95.1 Presence of aortocoronary bypass graft; Z86.73 Personal history of transient ischemic attack (TIA), and cerebral infarction without residual deficits; Z79.2 Long term (current) use of antibiotics; Z86.79 Personal history of other diseases of the circulatory system; Z79.82 Long term (current) use of aspirin; Z79.899 Other long term (current) drug therapy; Z68.20 Body mass index [BMI] 20.0-20.9, adult

== ENCOUNTER 2017-06-15 01:40 | Observation (INO) | payer OTHER ==
[2017-06-15] VITALS (8 sets, daily range): BP systolic 137–198; BP diastolic 68–108; PULSE 59–88; TEMP 36.5–37; O2SAT 92–97; Ht 180.3 cm; Wt 63.4 kg
[~2017-06-15] VITALS: Ht 180.3 cm; Wt 63.4 kg
[~2017-06-15 01:40] MED LIST changes: -ALBUAER2 INH; +DXY100 PO; +IPRA1AER2 INH; +LPR25 PO; +VNTHFA/IN INH
[2017-06-15] MEDS ORDERED: NITROGLYCERIN 0.4 MG SL PER TAB CHARGE ONE (02:26)
[2017-06-15 02:32] LABS: BASO % 0.1 %; BASO ABS # 0.01 K/uL (0-0.2); COMPLETE YES; EOS % 2.8 %; HEMATOCRIT 43.6 % (42-52); IG% 0.1 %; LYMPH % 22.5 %; LYMPH ABS # 1.62 K/uL (1.2-3.4); MEAN CELL VOLUME 93.2 fL (80-100); MEAN CORPUSCULAR HEMOGLOBIN 32.1 pg (25-34); MEAN CORPUSCULAR HGB CONC 34.4 g/dl (32-36); MEAN PLATELET VOLUME 11.4 fL (7.4-10.4); MONO % 7.9 %; NEUT % 66.6 %; PLATELET COUNT 128 K/uL (130-400); RED BLOOD COUNT 4.68 M/uL (4.7-6.1)
[2017-06-15 02:42] LABS: BUN/CREATININE RATIO 19.2 (10-20); CALCIUM 8.8 mg/dl (8.5-10.1); CREATININE 1.5 mg/dl (0.60-1.40)
[2017-06-15 02:46] LABS: PARTIAL THROMBOPLASTIN RATIO 1.1; PROTHROMBIN TIME (PATIENT) 10.5 SECONDS (9.0-12.0)
[2017-06-15 02:47] LABS: CKMB/CK RATIO 3.3 (0-3.0)
[2017-06-15] MEDS ORDERED: MoRPHine SULFATE 4 MG/ML 1 ML CARP\\VIAL IV STA (03:18)
[2017-06-15] MEDS ORDERED: ONDANSETRON INJ 2 MG/ML 2 ML VIAL IV STA (03:18)
[2017-06-15] MEDS ORDERED: ACETAMINOPHEN 325 MG TAB PO PRN (04:15)
[2017-06-15] MEDS ORDERED: NITROGLYCERIN 0.4 MG SL PER TAB CHARGE UT PRN (04:15)
[2017-06-15] MEDS ORDERED: ONDANSETRON INJ 2 MG/ML 2 ML VIAL IV PRN (04:15)
[2017-06-15] MEDS ORDERED: MAGNESIUM HYDROXIDE SUSP 30 ML UDC PO PRN (04:15)
[2017-06-15] MEDS ORDERED: ALBUTEROL HFA 8 GM INHALER INH PRN (04:15)
[2017-06-15] MEDS ORDERED: NITROGLYCERIN 0.4 MG SL PER TAB CHARGE SL PRN (04:15)
[2017-06-15] MEDS ORDERED: ALUMINUM/MAGNESIUM/SIMETH (MAALOX MAX) 30 ML UDC PO PRN (04:15)
--- NOTE | 2017-06-15 04:26 | History and Physical ---
History & Physical Date & Time of Service: Jun 15, 2017 at 04:18 Chief Complaint: Chest Pain Primary Care Physician: Carlos Ricks M.D. History of Present Illness Source: patient Mr Curry is a 77 yo M with known CAD - s/p CABG, hyperlipidemia, HTN - who presents with chest pain which started at 3:30pm yesterday. He reports it suddenly got worse later in the evening so he decided to come in. It came on while he was driving his car. The pain radiated down his L arm, and reminded him of his previous MA-like pain. He took a Nitro tablet which had no effect, and he also had 3 nitro tablets in the ED which made his pain radiate into his abdomen and legs. Once he received some morphine, he felt much better. He reports he has been house-sitting his daughters house while she is on vacation. On Saturday, he did fall and hit his back and side while in the shower. He did not seek medical attention for this. Past Medical/Surgical History Medical Problems: (1) Aneurysm Status: Resolved (2) ASCVD (arteriosclerotic cardiovascular disease) Status: Chronic (3) Diverticulosis of colon Status: Chronic (4) Femoral artery stenosis Status: Resolved (5) Heart attack Status: Resolved (6) Heart valve stenosis Status: Resolved (7) History of cardioversion Status: Resolved (8) Hx-TIA (transient ischemic attack) Status: Resolved (9) Hyperlipidemia Status: Chronic (10) Hypertension Status: Chronic (11) Hypertension Status: Chronic (12) Leakage of femoral arterial graft Status: Resolved (13) Pacemaker Status: Chronic (14) Thoracic aortic aneurysm Status: Chronic (15) Unilateral inguinal hernia Status: Chronic Surgical Problems: (1) Hx of CABG Status: Resolved (2) Hx of CABG Status: Resolved (3) S/P AAA repair Status: Resolved Family History Heart disease Social History Smoking Status: Current Every Day Smoker Smokeless Tobacco Use: No Alcohol Use: none Drug Use: none Marital Status: Housing status: lives with family Occupational Status: retired Immunizations History of Influenza Vaccine: No History of Tetanus Vaccine?: Unknown History of Pneumococcal: Yes Pneumococcal Date: Dec 02, 2008 History of Hepatitis B Vaccine: Unknown Multi-Drug Resistant Organisms History of MDRO: No Allergies Coded Allergies: Simvastatin (Verified Adverse Reaction, Unknown, N&V, 06/15/17) Home Medications Scheduled Amlodipine Besylate (Amlodipine Besylate), 2.5 MG PO QAM Aspirin (Aspir-81), 1 TAB PO QAM Cephalexin Monohydrate (Keflex), 500 MG PO TID Diclofenac Sod (Voltaren), 1 APPLN EXT TID Ipratropium-Albuterol (Combivent Respimat), 30 PUFFS INH QID Metoprolol Tartrate (Lopressor), 25 MG PO BID Rosuvastatin Calcium (Crestor), 40 MG PO 2 X WK Scheduled PRN Albuterol Hfa (Ventolin Hfa), 1-2 PUFFS INH Q4 PRN for SOB/Wheezing Nitroglycerin (Nitrostat), 0.4 MG UT UD PRN for Chest Pain Review of Systems See HPI for pertinent positives & negatives. A total of 10 systems reviewed and were otherwise negative. Physical Exam Vital Signs Date Time Temp Pulse Resp B/P (MAP) Pulse Ox O2 Delivery O2 Flow Rate FiO2 06/15/17 02:00 62 06/15/17 01:50 97 Room Air 06/15/17 01:42 36.6 83 18 169/90 94 Room Air General Appearance: WD/WN, no apparent distress, + thin Head: normocephalic, atraumatic Eyes: normal inspection, PERRL ENT: hearing grossly normal Neck: supple, no JVD Respiratory/Chest: lungs clear, normal breath sounds, no respiratory distress Cardiovascular: regular rate, rhythm, no murmur, normal peripheral pulses, + pertinent finding (palpable chest tenderness to L intercostal spaces of 8-9th ribs) Abdomen/GI: normal bowel sounds, non tender, soft Back: no CVA tenderness, no muscle spasm Extremities/Musculoskelatal: no calf tenderness, no pedal edema Neurologic/Psych: alert, normal mood/affect, oriented x 3 Skin: no rash Diagnostics Laboratory Results Results Past 24 Hours Test 06/15/17 01:55 Range/Units White Blood Count 7.20 4.8-10.8 K/uL Red Blood Count 4.68 4.7-6.1 M/uL Hemoglobin 15.0 14.0-18.0 g/dL Hematocrit 43.6 42-52 % Mean Corpuscular Volume 93.2 80-100 fL Mean Corpuscular Hemoglobin 32.1 25-34 pg Mean Corpuscular Hemoglobin Concent 34.4 32-36 g/dl Platelet Count 128 130-400 K/uL Mean Platelet Volume 11.4 7.4-10.4 fL Neutrophils (%) (Auto) 66.6 % Lymphocytes (%) (Auto) 22.5 % Monocytes (%) (Auto) 7.9 % Eosinophils (%) (Auto) 2.8 % Basophils (%) (Auto) 0.1 % Neutrophils # (Auto) 4.79 1.4-6.5 K/uL Lymphocytes # (Auto) 1.62 1.2-3.4 K/uL Monocytes # (Auto) 0.57 0.11-0.59 K/uL Eosinophils # (Auto) 0.20 0-0.5 K/uL Basophils # (Auto) 0.01 0-0.2 K/uL RDW Standard Deviation 48.0 36.4-46.3 fL RDW Coefficient of Variation 14.1 11.5-14.5 % Immature Granulocyte % (Auto) 0.1 % Immature Granulocyte # (Auto) 0.01 0.00-0.02 K/uL Prothrombin Time 10.5 9.0-12.0 SECONDS Prothromb Time International Ratio 1.0 0.9-1.1 Activated Partial Thromboplast Time 29.0 21.0-31.0 SECONDS Partial Thromboplastin Ratio 1.1 Sodium Level 140 136-145 mmol/L Potassium Level 4.0 3.5-5.1 mmol/L Chloride Level 105 98-107 mmol/L Carbon Dioxide Level 26 21-32 mmol/L Anion Gap 9.0 3-11 mmol/L Blood Urea Nitrogen 29 7-18 mg/dl Creatinine 1.50 0.60-1.40 mg/dl Est Creatinine Clear Calc Drug Dose 38.2 ml/min Estimated GFR () 51.0 Estimated GFR (Non- 44.0 BUN/Creatinine Ratio 19.2 10-20 Random Glucose 98 70-99 mg/dl Calcium Level 8.8 8.5-10.1 mg/dl Total Bilirubin 0.4 0.2-1 mg/dl Aspartate Amino Transf (AST/SGOT) 13 15-37 U/L Alanine Aminotransferase (ALT/SGPT) 20 12-78 U/L Alkaline Phosphatase 101 45-117 U/L Total Creatine Kinase 66 39-308 U/L Creatine Kinase MB 2.2 0.5-3.6 ng/ml Creatine Kinase MB Ratio 3.3 0-3.0 Troponin I 0.015 0-0.045 ng/ml Pro-B-Type Natriuretic Peptide 2046 0-1800 pg/ml Total Protein 7.0 6.4-8.2 gm/dl Albumin 3.5 3.4-5.0 gm/dl Globulin 3.5 2.5-4.0 gm/dl Albumin/Globulin Ratio 1.0 0.9-2 CXR normal EKG Atrial-paced rhythm with prolonged AV conduction Inferior infarct (cited on or before 19-NOV-2003) Abnormal ECG When compared with ECG of 23-MAR-2017 04:41, Electronic atrial pacemaker has replaced Sinus rhythm T wave inversion more evident in Inferior leads Nonspecific T wave abnormality, worse in Lateral leads Impression Assessment and Plan 77 yo M with known CAD, risk factors including gender, age, previous MA & hyperlipidemia who presents with chest pain - ddx cardiac versus MSK. Chest pain - Continue morphine as needed - Trend cardiac enzymes - Cardiology consult - Continue home aspirin, beta vinita, and statin Hx of CABG w/graft infection - Continue home Keflex Recent falls - Rib Xrays - Voltaren gel to L ribs - PT/OT VTE: Lovenox CODE STATUS: Full DISPO: Tele Attending Addendum: I have physically seen and examined this patient, have supervised the medical residents activities, and agree with the H&P as noted above with the following exceptions: NONE The patient is awake, well-developed and adequately nourished, alert and oriented 3, normocephalic and atraumatic, lying in bed and in no acute distress. HEENT--PERRL, EOMI, mucous membranes and oropharynx dry. Neck--supple, no JVD or bruits, thyroid normal, trachea midline, no adenopathy. Heart--normal S1 and S2, no extra beats, no murmurs, rubs or gallops. Lungs--clear bilaterally with good air movement, no respiratory distress, no accessory muscle use. Abdomen--normal bowel sounds and soft, nontender and nondistended, no hernias or masses, no organomegaly. Extremities--no cyanosis, clubbing or edema. There are good distal pulses b/l. Dermatologic--normal skin turgor, normal color, warm and dry, no abnormal lymph nodes, no rash. Neurologic--cranial nerves II through XII grossly intact, motor and sensory examination normal. Rheumatologic--normal range of motion, nontender, muscles and joints. Psychiatric--normal affect. Assessment and Plan: 1. CAD/hypertension/status post CABG--The patient will be admitted to telemetry for serial cardiac enzymes, cardiac rhythm monitoring and a 2-D echocardiogram with Dopplers. Continue current dosing of aspirin, beta vinita and statin. Morphine IV when necessary breakthrough pain. EKG does show atrial paced rhythm, old inferior MA, more significant T wave inversions in inferior leads and nonspecific T-wave changes in lateral leads. If develops recurrent symptoms or progressive EKG changes, with start heparin drip at that time. Consult cardiology. Level of Care Telemetry Resuscitation Status FULL RESUSCITATION VTE Prophylaxis VTE Risk Assessment Done? Y/N: Yes Risk Level: Moderate Given or contraindicated: Enoxaparin (Lovenox)SQ Resident Tracking Resident Involvement: Resident Care Provided Care Provided: Adult Hospital Medicine
--- NOTE | 2017-06-15 04:51 | EMERGENCY ROOM VISIT NOTE ---
History Report prepared by Mary: Salima Coleman Under the Supervision of: Dr. Yadira Pettit D.O. First contact with patient: 01:52 Chief Complaint: CHEST PAIN Stated Complaint: CHEST PAIN Nursing Triage Summary: Patient reports chest pain since 1530 yesterday afternoon. Patient also reports shortness of breath and cough with yellow sputum but states "thats from cigarettes". Patient reports pain with deep breath. Hx open heart surgery in 1991 and 1993. Patient also reports aneurysm behind his heart. Patient took 1 Nitro tablet at 2030 with no relief. History of Present Illness The patient is a 77 year old male who presents to the Emergency Room with complaints of worsening chest pain starting 1530 today. The pain is located in the left side of his chest. He describes his pain as sharp. He currently rates his discomfort as an 8/10 in severity. He took 1 nitro to no relief. He reports SOB. He denies any abdominal pain or leg swelling. Source of History: patient Onset: 1529 today Position: chest (left) Symptom Intensity: 8/10 Quality: sharp Timing: worsening Associated Symptoms: + SOB, No abdominal pain Note: Pt denies leg swelling. Review of Systems See HPI for pertinent positives & negatives. A total of 10 systems reviewed and were otherwise negative. Past Medical & Surgical Medical Problems: (1) Aneurysm (2) ASCVD (arteriosclerotic cardiovascular disease) (3) Chest pain (4) Diverticulosis of colon (5) Femoral artery stenosis (6) Heart attack (7) Heart valve stenosis (8) History of cardioversion (9) HTN (hypertension) (10) Hx-TIA (transient ischemic attack) (11) Hyperlipidemia (12) Hypertension (13) Hypertension (14) Leakage of femoral arterial graft (15) Pacemaker (16) Thoracic aortic aneurysm (17) Unilateral inguinal hernia Surgical Problems: (1) Hx of CABG (2) Hx of CABG (3) S/P AAA repair Family History Heart disease Social History Smoking Status: Current Every Day Smoker Marital Status: Housing Status: lives with significant other Occupation Status: retired Current/Historical Medications Scheduled Aspirin (Aspir-81), 1 TAB PO QAM Cephalexin Monohydrate (Keflex), 500 MG PO TID Ipratropium-Albuterol (Combivent Respimat), 30 PUFFS INH QID Metoprolol Tartrate (Lopressor), 25 MG PO BID Rosuvastatin Calcium (Crestor), 40 MG PO 2 X WK Scheduled PRN Albuterol Hfa (Ventolin Hfa), 1-2 PUFFS INH Q4 PRN for SOB/Wheezing Nitroglycerin (Nitrostat), 0.4 MG UT UD PRN for Chest Pain Allergies Coded Allergies: Simvastatin (Verified Adverse Reaction, Unknown, N&V, 06/15/17) Physical Exam Vital Signs Date Time Temp Pulse Resp B/P (MAP) Pulse Ox O2 Delivery O2 Flow Rate FiO2 06/15/17 04:39 60 18 150/103 100 Nasal Cannula 2.0 06/15/17 02:00 62 06/15/17 01:50 97 Room Air 06/15/17 01:42 36.6 83 18 169/90 94 Room Air Physical Exam HEENT: Head - normocephalic and atraumatic Pupils are equal, round, and reactive to light. Extraocular eye muscles are intact, and sclera are anicteric. Nose - moist nasal mucosa without discharge. Mouth - moist buccal mucosa. Oropharynx is nonerythematous and there is no tonsillar exudate or edema noted. Neck: Supple; no JVD, nuchal rigidity, cervical lymphadenopathy, or auscultated bruits. Heart: Regular rate and rhythm. There is a normal S1 and S2 with no murmurs, clicks, or gallops appreciated. Lungs: Clear to auscultation bilaterally with no wheezes, rales, or rhonchi. Abdomen: Soft, completely nontender, nondistended, with good bowel sounds. There are no palpable pulsatile masses or hepatosplenomegaly. There is no guarding, rigidity, or rebound noted. Extremities: No evidence of cyanosis, clubbing, or edema. There are easily palpable peripheral pulses. Skin: warm and dry with good turgor and no rashes. Medical Decision & Procedures ER Provider Diagnostic Interpretation: X-ray results as stated below per interpretation by me: Chest X-ray: No obvious pulmonary infiltrates, narrow mediastinum, cardiac pacemaker in place. Laboratory Results 06/15/17 01:55 Red Blood Count 4.68, Mean Corpuscular Volume 93.2, Mean Corpuscular Hemoglobin 32.1, Mean Corpuscular Hemoglobin Concent 34.4, Mean Platelet Volume 11.4, Neutrophils (%) (Auto) 66.6, Lymphocytes (%) (Auto) 22.5, Monocytes (%) (Auto) 7.9, Eosinophils (%) (Auto) 2.8, Basophils (%) (Auto) 0.1, Neutrophils # (Auto) 4.79, Lymphocytes # (Auto) 1.62, Monocytes # (Auto) 0.57, Eosinophils # (Auto) 0.20, Basophils # (Auto) 0.01 06/15/17 01:55 Test 06/15/17 01:55 White Blood Count 7.20 K/uL (4.8-10.8) Red Blood Count 4.68 M/uL (4.7-6.1) Hemoglobin 15.0 g/dL (14.0-18.0) Hematocrit 43.6 % (42-52) Mean Corpuscular Volume 93.2 fL (80-100) Mean Corpuscular Hemoglobin 32.1 pg (25-34) Mean Corpuscular Hemoglobin Concent 34.4 g/dl (32-36) Platelet Count 128 K/uL (130-400) Mean Platelet Volume 11.4 fL (7.4-10.4) Neutrophils (%) (Auto) 66.6 % Lymphocytes (%) (Auto) 22.5 % Monocytes (%) (Auto) 7.9 % Eosinophils (%) (Auto) 2.8 % Basophils (%) (Auto) 0.1 % Neutrophils # (Auto) 4.79 K/uL (1.4-6.5) Lymphocytes # (Auto) 1.62 K/uL (1.2-3.4) Monocytes # (Auto) 0.57 K/uL (0.11-0.59) Eosinophils # (Auto) 0.20 K/uL (0-0.5) Basophils # (Auto) 0.01 K/uL (0-0.2) RDW Standard Deviation 48.0 fL (36.4-46.3) RDW Coefficient of Variation 14.1 % (11.5-14.5) Immature Granulocyte % (Auto) 0.1 % Immature Granulocyte # (Auto) 0.01 K/uL (0.00-0.02) Prothrombin Time 10.5 SECONDS (9.0-12.0) Prothromb Time International Ratio 1.0 (0.9-1.1) Activated Partial Thromboplast Time 29.0 SECONDS (21.0-31.0) Partial Thromboplastin Ratio 1.1 Anion Gap 9.0 mmol/L (3-11) Est Creatinine Clear Calc Drug Dose 38.2 ml/min Estimated GFR () 51.0 Estimated GFR (Non- 44.0 BUN/Creatinine Ratio 19.2 (10-20) Calcium Level 8.8 mg/dl (8.5-10.1) Total Bilirubin 0.4 mg/dl (0.2-1) Aspartate Amino Transf (AST/SGOT) 13 U/L (15-37) Alanine Aminotransferase (ALT/SGPT) 20 U/L (12-78) Alkaline Phosphatase 101 U/L (45-117) Total Creatine Kinase 66 U/L (39-308) Creatine Kinase MB 2.2 ng/ml (0.5-3.6) Creatine Kinase MB Ratio 3.3 (0-3.0) Troponin I 0.015 ng/ml (0-0.045) Pro-B-Type Natriuretic Peptide 2046 pg/ml (0-1800) Total Protein 7.0 gm/dl (6.4-8.2) Albumin 3.5 gm/dl (3.4-5.0) Globulin 3.5 gm/dl (2.5-4.0) Albumin/Globulin Ratio 1.0 (0.9-2) Laboratory results per my review. Medications Administered Medications (Trade) Dose Ordered Sig/Chelsey Route Start Time Stop Time Status Last Admin Dose Admin Nitroglycerin (Nitrostat Tab) 0.4 mg STK-MED ONCE .ROUTE 06/15/17 02:26 06/15/17 02:27 DC 06/15/17 02:26 0.4 MG Morphine Sulfate (MoRPHine SULFATE INJ) 4 mg NOW STAT IV 06/15/17 03:18 06/15/17 03:19 DC 06/15/17 03:24 4 MG Ondansetron HCl (Zofran Inj) 4 mg NOW STAT IV 06/15/17 03:18 06/15/17 03:19 DC 06/15/17 03:23 4 MG Procedure Medications: Nitroglycerin 0.4 mg SL, Zofran Inj 4 mg IV, Morphine Sulfate 4 mg IV. ECG Indication: chest pain Rate (beats per minute): 85 Rhythm: other (atrial paced) Findings: ST depression (Inferior), no ectopy Comparison ECG Date: 23-Mar-2017 Change: no significant change ED Course 0220: The patient was evaluated in room B9. A complete history and physical examination were performed. Nursing notes ad previous electronic medical records were reviewed. IV lock was established and labs were drawn as above. 0226: Nitroglycerin 0.4 mg SL. 0318: I reevaluated the patient. He has not had relief with the nitro. He is developing abdominal pain and left leg pain. 0325: Zofran Inj 4 mg IV, Morphine Sulfate 4 mg IV. 0343: I reevaluated the patient. His pain has resolved with morphine. I discussed findings and results with him. He verbalized agreement of the treatment plan. The patient will be evaluated for further management and care. 0356: I discussed the patient's case with EVELYN Murrell hospitalist. The patient will be evaluated for further management. Medical Decision The patient is a 77 year old male who presents to the ED with chest pain. Differential diagnosis includes STEMI, NSTEMI, pleurisy, GERD, aortic dissection. Labs: no leukocytosis, stable H&H, BUN 29, creatinine 1.5 which is baseline for patient, LFTs are normal, BNP 2046, negative cardiac enzymes, normal coags. I attest that I have personally reviewed the patient's current medication list. Patient was found to have an elevated blood pressure which will be addressed by the hospitalist. The patient's EKG is unchanged. Cardiac enzymes are negative. The patient has a long-standing history of cardiac disease. His presentation of chest pain was atypical. After receiving the IV morphine, he is chest pain-free. He is in no acute rest for distress at this time. Consults Time Called: [phone] Consulting Physician: FRANK Murrell hospitalist Returned Call: [phone] I discussed the patient's case with her. The patient will be evaluated for further management. Impression Primary Impression: Left sided chest pain Scribe Attestation The scribe's documentation has been prepared under my direction and personally reviewed by me in its entirety. I confirm that the note above accurately reflects all work, treatment, procedures, and medical decision making performed by me. Departure Information Dispostion Being Evaluated By Hospitalist Referrals Carlos Ricks M.D. (PCP) Patient Instructions [facility]
[2017-06-15] MEDS ORDERED: IV FLUIDS COMPLETED PRN (05:00)
[2017-06-15] MEDS: DICLOFENAC SOD 1% GEL 100 GM TUBE EXT SCH ×4 (06:00→23:23)
--- NOTE | 2017-06-15 06:18 | DIAGNOSTIC IMAGING REPORT ---
CHEST ONE VIEW PORTABLE CLINICAL HISTORY: cp dyspnea COMPARISON STUDY: 03/23/2017 FINDINGS: Prior median sternotomy. Bipolar cardiac pacemaker. Mild emphysematous change with slight chronic interstitial fibrosis. IMPRESSION: Chronic change. No acute process. The above report was generated using voice recognition software. It may contain grammatical, syntax or spelling errors. Electronically signed by: Hi Tomlinson M.D. 06/15/2017 6:17 AM Dictated Date/Time: 06/15/2017 6:16 AM
[2017-06-15] MEDS: IPRATROPIUM BROMIDE/ALBUTEROL respimat INH INH SCH ×4 (07:32→21:11)
[2017-06-15] MEDS: ASPIRIN 81 MG ECTAB PO SCH (07:33)
[2017-06-15] MEDS: METOPROLOL TARTRATE 25 MG TAB PO SCH ×2 (07:33→21:11)
[2017-06-15] MEDS: CEPHALEXIN MONOHYDRATE 500 MG CAP PO SCH ×3 (07:33→21:11)
[2017-06-15] MEDS: HEPARIN SOD 5000 UNIT/0.5 ML CARP SQ SCH ×3 (07:34→21:00)
--- NOTE | 2017-06-15 08:52 | Family Medicine Progress Note ---
Progress Note Date of Service Jun 15, 2017. Subjective Pt evaluation today including: conversation w/ patient, physical exam, chart review, lab review, review of studies, conversation w/ databases computer consultant, review of inpatient medication list Patient states that he is feeling a lot better. He describes an absence of chest pain currently. He continues to deny any associated SOB, diaphoresis, nausea. He says he has been walking to the bathroom and back without any recurrence of symptoms. He did fall recently, and he has not required any pain medication for rib pain up until last night, and states they are not tender currently. He is otherwise sleeping well, tolerating diet, and has no changes in voiding or stooling. ROS otherwise unremarkable except as noted above. Objective Vital Signs Date Time Temp Pulse Resp B/P (MAP) Pulse Ox O2 Delivery O2 Flow Rate FiO2 06/15/17 07:41 36.7 59 18 198/81 (120) 93 Room Air 06/15/17 05:31 151/86 (107) 06/15/17 04:55 36.5 88 174/108 94 Room Air 06/15/17 04:39 60 18 150/103 100 Nasal Cannula 2.0 06/15/17 02:00 62 06/15/17 01:50 97 Room Air 06/15/17 01:42 36.6 83 18 169/90 94 Room Air Physical Exam General Appearance: WD/WN, no apparent distress ENT: hearing grossly normal Neck: supple, no JVD Respiratory/Chest: chest non-tender, lungs clear, normal breath sounds, no respiratory distress, no accessory muscle use Cardiovascular: regular rate, rhythm, no JVD, + systolic murmur Abdomen: normal bowel sounds, non tender, soft Extremities: non-tender, normal inspection, no pedal edema, no calf tenderness , + pertinent finding (Full shoulder ROM without symptom recurrence) Neurologic/Psychiatric: alert, normal mood/affect, oriented x 3 Skin: normal color, warm/dry, no rash Lymphatic: no adenopathy Laboratory Results Results Past 24 Hours Test 06/15/17 10:26 06/15/17 15:58 06/15/17 22:03 06/16/17 04:05 Range/Units Total Creatine Kinase 88 79 70 67 39-308 U/L Creatine Kinase MB 3.2 2.9 2.7 2.8 0.5-3.6 ng/ml Creatine Kinase MB Ratio 3.6 3.7 3.9 4.2 0-3.0 Troponin I 0.020 0.019 0.017 < 0.015 0-0.045 ng/ml Chemistry Specimen Hemolysis Assessment and Plan 77 yo M with known CAD and vascular disease (s/p CABG, left carotid endarterectomy 2011, right femoral artery aneurysm excision and recent pseudoaneurysm repair), COPD, HLD, and thoracic aortic aneurysm at junction of the distal descending thoracic aorta and abdominal aorta measuring 6.5 cm at the celiac on 01/25/17 CT, presents with left sided chest pain, which was relieved by morphine, but no nitro Chest pain Cardiology consulted -recs appreciated. EKG unchanged from previous. - Trend cardiac enzymes - negative x 2 currently - Continue morphine as needed - Continue home aspirin, beta vinita, and statin - Encourage smoking cessation - If recurrence of symptoms, consider CT chest with contrast to rule out thoracic aneurysm leakage Recent falls Rib Xray negative - Voltaren gel to L ribs - PT/OT HTN - Added amlodipine to metoprolol, as per cardiology Hx of aneurysm graft infection - Continue home Keflex VTE - Enoxaparin CODE STATUS: Full Resident Physician Supervision Note: I interviewed and examined the patient. Discussed with Dr. Murcia and agree with findings and plan as documented in the note. Any exceptions or clarifications are listed here: None Documented By: Spencer Palacios chest pain feeling better. vitals noted nad breathing unlabored enzymes negative chest pain - unlikely to be cardiac. enzymes negative. plan as per cardiology. hopefully then can go home tomorrow otherwise as above Discharge planning: home Resident Tracking Resident Involvement: Resident Care Provided Care Provided: Adult Hospital Medicine
--- NOTE | 2017-06-15 08:57 | DIAGNOSTIC IMAGING REPORT ---
LEFT RIBS UNILATERAL MIN 2 VIEWS CLINICAL HISTORY: tenderness to L lower ribs pain COMPARISON STUDY: None FINDINGS: No acute process left ribs. Postoperative changes as have been described previously IMPRESSION: Negative left ribs The above report was generated using voice recognition software. It may contain grammatical, syntax or spelling errors. Electronically signed by: Hi Tomlinson M.D. 06/15/2017 8:56 AM Dictated Date/Time: 06/15/2017 8:53 AM
[2017-06-15 11:19] LABS: CKMB/CK RATIO 3.6 (0-3.0)
--- NOTE | 2017-06-15 12:46 | Cardiology Consultation ---
Cardiology Consultation Date of Service Jun 15, 2017. 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 He was treated in the ER with nitroglycerin with no effect, he received morphine with marked improvement. Overnight, his pain diminished from 07/11 to 01/11 currently. He denies any associated symptoms, specifically noting no dyspnea, subjective palpitations, presyncope, or syncope. He was fairly comfortable this morning eating breakfast. Of note, he had an admission for left-sided chest pain in March of this year, this was felt to be secondary to coughing related to underlying COPD. OUTPATIENT MEDICATIONS: Albuterol Aspirin 81 mg daily Cephalexin Crestor Metoprolol tartrate 25 mg b.i.d. Nitrostat Tramadol p.r.n. ALLERGIES: No known drug allergies PAST MEDICAL HISTORY: CAD, as above CABG COPD Dyslipidemia Hypertension Erectile dysfunction Iron deficiency anemia Knee arthralgias Nicotine dependence Peripheral vascular disease Raynaud's phenomenon Questionable seizure disorder Weight loss Pacemaker for bradycardia Thoracic aortic aneurysm, junction of the distal descending thoracic aorta and abdominal aorta measuring 6.5 cm at the celiac on 01/25/17 CT. Infected right iliofemoral Dacron femoral aneurysm graft, lifelong cephalosporin planned PAST SURGICAL HISTORY: CABG Left carotid endarterectomy 2011 Inguinal hernia repair Lower back surgery Pacemaker placement Abdominal aortic aneurysm repair 2009 Multiple femoral artery procedures SOCIAL HISTORY: Active smoker. Quit drinking in 1984. FAMILY HISTORY: Not significant REVIEW OF SYSTEMS: As per HPI PHYSICAL EXAMINATION: No distress. Vitals: Skin: No unusual lesions or ecchymosis. HEENT: Unremarkable. Neck: Jugular venous pulse at the clavicle at 90, chronic allowed right and soft left carotid bruits. Lungs: Moderately decreased breath sounds but clear. No accessory muscle use. No wheezing or crackles. Cardiac: Regular rhythm with normal S1 and S2. 2/6 basal systolic ejection murmur, no diastolic murmur or gallop. Abdomen: Benign. Extremities: Nontender without edema. Lower extremity pulses not readily palpable, fair capillary refill (2-3 seconds). Neurologic: Normal affect, nonfocal\ DATA: ECG on admission showed atrial electronic pacing with mild interventricular conduction delay, old inferior infarct, nonspecific T-wave inversions inferior leads. Subsequent ECG showed similar rhythm with a single PVC, no dynamic ST changes. Chest x-ray and left rib films showed no acute process. CBC unremarkable. Coagulation studies normal. Normal electrolytes, BUN 29, creatinine 1.5. Normal transaminases. Cardiac enzymes negative x 2. ProBNP 20 46. IMPRESSION: 1. Left-sided chest pain, resolving/etiology uncertain 2. Coronary artery disease, status post remote CABG/no evidence of myocardial ischemia presently 3. Thoracic aortic aneurysm 4. Severe peripheral vascular disease 5. Status post pacemaker, functioning appropriately 6. Ongoing/longstanding tobacco use, resistant to tobacco cessation 7. Chronic iliofemoral graft infection, on permanent cephalosporin antibiotics 8. Chronic renal insufficiency (creatinine 1.5) 9. Hypertension, suboptimally controlled. 10. Multiple other medical problems, stable. DISCUSSION: Patient well known to me from multiple outpatient encounters over the past 2 decades. Fortunately, no evidence of ongoing myocardial ischemia. Given the severity of his chest pain yesterday with negative enzymes and stable ECG an ischemic etiology for his symptoms seems very unlikely. Similarly, although thoracic aneurysm leakage would be an initial consideration, the fact that he feels much better without intervention makes this a less likely diagnosis as well. However, if he were to develop increasing symptoms, would have a low threshold for CT scan (likely with contrast, even in the face of renal insufficiency) to exclude leaking aneurysm. Most likely, his symptoms are nonspecific musculoskeletal in origin, since he had similar left-sided chest pain in March. However, given his extensive vasculopathy, certainly prudent to monitor him for perhaps another 24 hours. Since his blood pressure is somewhat elevated, will add low-dose amlodipine to his regimen. Would titrate gently, since he does have a history of orthostasis and has not tolerated vaso active medications particularly well. We will certainly discuss smoking cessation, but he has been quite resistant to the concept in the past (I believe he briefly quit smoking once in the 20 years I have followed him). Will continue to follow along, thank you for this interesting consultation on this very resilient individual.
[2017-06-15] MEDS ORDERED: AMLODIPINE BESYLATE 5 MG TAB PO ONE (13:00)
[2017-06-15 16:30] LABS: CKMB/CK RATIO 3.7 (0-3.0)
[2017-06-15 22:35] LABS: CKMB/CK RATIO 3.9 (0-3.0)
[2017-06-16 03:10] VITALS: BP 166/89; PULSE 78; TEMP 36.6; O2SAT 95
[2017-06-16 04:48] LABS: CKMB/CK RATIO 4.2 (0-3.0)
[2017-06-16] MEDS: DICLOFENAC SOD 1% GEL 100 GM TUBE EXT SCH (04:59)
[2017-06-16 07:55] VITALS: BP 157/80; PULSE 61; TEMP 36.7; O2SAT 93
[2017-06-16] MEDS: IPRATROPIUM BROMIDE/ALBUTEROL respimat INH INH SCH (08:11)
[2017-06-16] MEDS: CEPHALEXIN MONOHYDRATE 500 MG CAP PO SCH (08:11)
[2017-06-16] MEDS: METOPROLOL TARTRATE 25 MG TAB PO SCH (08:12)
[2017-06-16] MEDS: HEPARIN SOD 5000 UNIT/0.5 ML CARP SQ SCH (08:12)
[2017-06-16] MEDS: ASPIRIN 81 MG ECTAB PO SCH (08:12)
[2017-06-16] MEDS ORDERED: AMLODIPINE BESYLATE 5 MG TAB PO SCH (09:00)
--- NOTE | 2017-06-16 10:26 | Cardiology Follow-Up ---
Cardiology Follow-Up Date of Service Jun 16, 2017. Cardiology Follow-Up SUBJECTIVE: 77-year-old man with extensive vascular disease required multiple revascularizations (CABG 1991, left carotid endarterectomy 2011, right femoral artery aneurysm excision with recurrent graft infection followed by pseudoaneurysm repair 2015), pacemaker, thoracic aortic aneurysm, and multiple other medical problems admitted early on 06/15/2017 after presenting with severe left-sided chest pain. He was treated in the ER with nitroglycerin with no effect, he received morphine with marked improvement. Overnight, his pain resolved completely. He has no complaints currently, denies any chest discomfort, dyspnea, palpitations, presyncope or syncope. He was comfortable this morning eating breakfast. Of note, he had an admission for left-sided chest pain in March of this year, this was felt to be secondary to coughing related to underlying COPD. PHYSICAL EXAMINATION: No distress. Vitals: Afebrile. BP 157/80, pulse 60 and regular, respirations 18 and unlabored. Skin: No unusual lesions or ecchymosis. HEENT: Unremarkable. Neck: Jugular venous pulse at the clavicle at 90, chronic loud right and soft left carotid bruits. Lungs: Moderately decreased breath sounds but clear. No accessory muscle use. No wheezing or crackles. Cardiac: Regular rhythm with normal S1 and S2. 2/6 basal systolic ejection murmur, no diastolic murmur or gallop. Abdomen: Benign. Extremities: Nontender without edema. Lower extremity pulses not readily palpable, fair capillary refill (2-3 seconds). Neurologic: Normal affect, nonfocal\ DATA: ECG on admission showed atrial electronic pacing with mild interventricular conduction delay, old inferior infarct, nonspecific T-wave inversions inferior leads. Subsequent ECGs showed no significant change. Cardiac enzymes negative x5. 1. Left-sided chest pain, resolved/etiology uncertain (likely musculoskeletal). 2. Coronary artery disease, status post remote CABG/no evidence of myocardial ischemia 3. Thoracic aortic aneurysm 4. Severe peripheral vascular disease 5. Status post pacemaker, functioning appropriately 6. Ongoing/longstanding tobacco use, resistant to tobacco cessation 7. Chronic iliofemoral graft infection, on permanent cephalosporin antibiotics 8. Chronic renal insufficiency (creatinine 1.5) 9. Hypertension, suboptimally controlled. 10. Multiple other medical problems, stable. DISCUSSION: No evidence of myocardial ischemia. Thoracic aneurysm leakage/rupture unlikely with spontaneous resolution of symptoms. Will consider outpatient re-evaluation of his aneurysm, however in the absence of symptoms he most likely would be treated conservatively given his high risk of perioperative complications due to extensive vascular disease. Since his blood pressure remains somewhat elevated, please add low-dose amlodipine to his outpatient regimen. Okay for discharge home. I will see him in the office within the next few weeks.
[2017-06-16] MEDS ORDERED: NRV5 PO (10:32)
[2017-06-16] MEDS ORDERED: VLTG EXT (10:32)
--- NOTE | 2017-06-16 10:34 | Discharge Instructions ---
Discharge Instructions Date of Service Jun 16, 2017. Admission Reason for Admission: Chest Pain Discharge Discharge Diagnosis / Problem: chest / shoulder pain from fall Discharge Goals Goal(s): Diagnostic testing, Therapeutic intervention Activity Recommendations Activity Limitations: resume your previous activity . Instructions / Follow-Up Instructions / Follow-Up chest and shoulder pain - this appears to have been due to the fall. use the voltaren gel (diclofenac) three times a day until the area is feeling better, then you can stop uncontrolled hypertension - dr freedman recommended starting 2.5mg amlodipine ( norvasc) daily - so far you're tolerating it well. if you were to have side effects, the most common would be feeling lightheaded/dizzy (especially when first standing) - so for the next few days be careful. if that lightheadedness does happen, it would likely go away in a few days, if it doesn't Dr Freedman can change medications for you. follow your blood pressure readings once a day , at random times, so that he has a lot of information to work with as far as how well the meds are helping Current Hospital Diet Patient's current hospital diet: AHA Diet (Heart Healthy) Discharge Diet Recommended Diet: AHA Diet (Heart Healthy) Pending Studies Studies pending at discharge: no Medical Emergencies . Who to Call and When: Medical Emergencies: If at any time you feel your situation is an emergency, please call 911 immediately. . Non-Emergent Contact Non-Emergency issues call your: Primary Care Provider, Kitchen Steward . . "Provider Documentation" section prepared by Spencer Palacios. . VTE Core Measure Inpt VTE Proph given/why not?: Enoxaparin (Lovenox)SQ
--- NOTE | 2017-06-16 10:34 | Discharge Summary ---
Discharge Summary Date of Service Jun 16, 2017. (Alka. Murcia MD) Discharge Summary Admission Date: Jun 15, 2017 at 04:15 Discharge Disposition: Home Principal Diagnosis: musculoskeleteal chest pain Problems/Secondary Diagnoses: (1) Hyperlipidemia Status: Chronic (2) Hypertension Status: Chronic Immunizations: Have You Had Influenza Vaccine: No History of Tetanus Vaccine?: Unknown History of Pneumococcal: Yes Pneumococcal Date: Dec 02, 2008 History of Hepatitis B Vaccine: Unknown Consultations: Cardiology (Alka. Murcia MD) Medication Reconciliation New Medications: Amlodipine Besylate (Amlodipine Besylate) 5 Mg Tab 2.5 MG PO QAM, #30 TAB Diclofenac Sod (Voltaren) 100 Appln/100 Gm Gel 1 APPLN EXT TID, #100 GM apply to shoulder TID until pain resolved Continued Medications: Albuterol Hfa (Ventolin Hfa) 200 Puffs/50349 Mcg Aers 1-2 PUFFS INH Q4 PRN for SOB/Wheezing Aspirin (Aspir-81) 81 Mg Tab 1 TAB PO QAM, TAB 3 Refills Cephalexin Monohydrate (Keflex) 500 Mg Cap 500 MG PO TID, 0 Refills CHRONIC USE DUE TO HISTORY OF GRAFT. Ipratropium-Albuterol (Combivent Respimat) 1 Aer Aer 30 PUFFS INH QID, #1 INH Metoprolol Tartrate (Lopressor) 25 Mg Tab 25 MG PO BID for 30 Days, #60 TAB Nitroglycerin (Nitrostat) 0.4 Mg Tab 0.4 MG UT UD PRN for Chest Pain Rosuvastatin Calcium (Crestor) 40 Mg Tab 40 MG PO 2 X WK Discharge Exam Patient states absence of chest pain since ED. He continues to deny any associated SOB, diaphoresis, nausea. He says he has walked the halls without any recurrence of symptoms. He is otherwise sleeping well, tolerating diet, and has no changes in voiding or stooling. ROS otherwise unremarkable except as noted above. Physical Exam: General Appearance: WD/WN, no apparent distress ENT: hearing grossly normal Neck: supple, no JVD Respiratory/Chest: lungs clear, normal breath sounds, no respiratory distress, no accessory muscle use Cardiovascular: regular rate, rhythm, normal peripheral pulses, + systolic murmur Abdomen / GI: normal bowel sounds, non tender, soft Extremities: normal inspection, no calf tenderness, normal capillary refill , no pedal edema Neurologic/Psychiatric: alert, normal mood/affect, oriented x 3 Skin: normal color, warm/dry, no rash Lymphatic: no adenopathy (Alka. Murcia MD) Hospital Course 77 yo M with known CAD and vascular disease (s/p CABG, left carotid endarterectomy 2011, right femoral artery aneurysm excision and recent pseudoaneurysm repair), COPD, HLD, and thoracic aortic aneurysm at junction of the distal descending thoracic aorta and abdominal aorta measuring 6.5 cm at the celiac on 01/25/17 CT, presents with left sided chest pain, which was relieved by morphine, but no nitro Chest pain Cardiology consulted -recs appreciated. EKG unchanged from previous. Cardiac enzymes - negative x 3 - Continue home aspirin, beta vinita, and statin - Encourage smoking cessation - Follow up with cardiology in 2-3 weeks Recent falls Rib Xray negative - Voltaren gel to L ribs - PT/OT HTN - Added amlodipine 2.5mg to metoprolol, as per cardiology Hx of aneurysm graft infection - Continue home Keflex VTE - Enoxaparin CODE STATUS: Full Total Time Spent: Less than 30 minutes This includes examination of the patient, discharge planning, medication reconciliation, and communication with other providers. (Alka. Murcia MD) Resident Physician Supervision Note: I interviewed and examined the patient. Discussed with Dr. Murcia and agree with findings and plan as documented in the note. Any exceptions or clarifications are listed here: None Documented By: Spencer Palacios feeling better no further CP f/u troponin negative OK to go per cardiology vitals noted nad breathing unlabored no pallor or icterus chest pain - likely muscular. stable for home uncontrolled HTN - increase in amlodipine as per cardiology. stable for home, outpt f/u (Spencer Palacios, D.O.) Discharge Instructions Please refer to the electronic Patient Visit Report (Discharge Instructions) for additional information. (Alka. Murcia MD) Additional Copies To Carlos Ricks M.D.
[2017-06-16 10:43] VITALS: BP 157/80; PULSE 61; TEMP 36.7; O2SAT 93
[2017-06-17] MEDS ORDERED: ROSUVASTATIN CALCIUM 20 MG TAB PO SCH (09:00)
== END 2017-06-16 10:50 | disposition home or self-care (01) ==
LOC: C.EDB 01:41 → C.2T 04:15 → ENRESERV 04:29
PROVIDERS: ADMIT Hospitalist; ATTEND Family Medicine
DX: R07.89 Other chest pain (principal); I25.10 Atherosclerotic heart disease of native coronary artery without angina pectoris; I10 Essential (primary) hypertension; E78.5 Hyperlipidemia, unspecified; I71.2 Thoracic aortic aneurysm, without rupture; J44.9 Chronic obstructive pulmonary disease, unspecified; F17.210 Nicotine dependence, cigarettes, uncomplicated; Z95.0 Presence of cardiac pacemaker; Z95.1 Presence of aortocoronary bypass graft; Z86.73 Personal history of transient ischemic attack (TIA), and cerebral infarction without residual deficits; Z79.82 Long term (current) use of aspirin; Z79.899 Other long term (current) drug therapy; Z91.81 History of falling

== ENCOUNTER → 2017-09-10 | Outpatient (CLI) | payer OTHER ==
[~2017-09-10] MED LIST changes: -DXY100 PO; +NRV5 PO; +VLTG EXT
== END | disposition home or self-care (01) ==
LOC: C.RDSM 10:11
PROVIDERS: ATTEND Orthopaedic Surgery Sports Medicine
DX: R52 Pain, unspecified (principal)

== ENCOUNTER → 2017-10-16 | Day surgery (SDC) | payer OTHER ==
[~2017-10-16] VITALS: Ht 180.3 cm; Wt 69.0 kg
[~2017-10-16] MED LIST changes: +ACET-1256 PO; +ATOR-26 PO; +ATROPINE SULFATE 0.1 MG/ML 5ML SYR IV PRN; -CEPH500C PO; +CIPROFLOXACIN 500 MG TAB PO SCH; +EpHEDrine SULFATE INJ 50 MG/ML AMP IV PRN; +FENTANYL CITRATE INJ 50 MCG/1 ML 2 ML VIAL IV PRN; +HYDROmorphone INJ 1 MG/ML SYR IV PRN; -IPRA1AER2 INH; +LABETALOL HCL IV 5 MG/ML 20ML IV PRN; -LPR25 PO; -NRV5 PO; +NUTR-977 PO; +ONDANSETRON INJ 2 MG/ML 2 ML VIAL IV PRN; +PHENYLEPHRINE 100MCG/ML 5ML SYR IV PRN; -ROSU40TA PO; +UMEC1AER INH; +VGR50 PO; -VLTG EXT; +cephalexin PO
[2017-10-16 10:05] VITALS: BP 160/66; PULSE 86; TEMP 36.4; O2SAT 94; Ht 180.3 cm; Wt 69.0 kg
--- NOTE | 2017-10-16 12:05 | History and Physical ---
History & Physical Date Oct 16, 2017. Chief Complaint left ureteral stricture History of Present Illness The patient is a 77 year old male with complaints of Past Medical/Surgical History Medical Problems: (1) Aneurysm (2) ASCVD (arteriosclerotic cardiovascular disease) (3) Chest pain (4) Diverticulosis of colon (5) Femoral artery stenosis (6) Heart attack (7) Heart valve stenosis (8) History of cardioversion (9) Hx-TIA (transient ischemic attack) (10) Hyperlipidemia (11) Hypertension (12) Hypertension (13) Leakage of femoral arterial graft (14) Pacemaker (15) Thoracic aortic aneurysm (16) Unilateral inguinal hernia Surgical Problems: (1) Hx of CABG (2) Hx of CABG (3) S/P AAA repair Additional History Hepatic Disease: No Endocrine Disorder: No Kidney Disease: Yes Hypertension: Yes Heart Disease: Yes Bleeding Tendencies: No Infectious Diseases: No Allergies Coded Allergies: Simvastatin (Verified Adverse Reaction, Unknown, N&V, 10/16/17) Home Medications Scheduled Acetaminophen (Tylenol), 500 MG PO PRN Aspirin (Aspir-81), 1 TAB PO QAM Atorvastatin (Lipitor), 80 MG PO 2XWEEK Enteral Nutrition Formula (Ensure Plus Vanilla), 1 CAN PO TIDM Sildenafil Citrate (Viagra), 50 MG PO PRN Umeclidinium-Vilanterol (Anoro Ellipta 62.5-25 Mcg/INH), 1 PUFF INH BID Scheduled PRN Albuterol Hfa (Ventolin Hfa), 1-2 PUFFS INH Q4 PRN for SOB/Wheezing Nitroglycerin (Nitrostat), 0.4 MG UT UD PRN for Chest Pain Physical Examination Skin: warm/dry, no rash Eyes: normal inspection Head: normocephalic Neck: no adenopathy, trachea midline Respiratory/Chest: lungs clear, normal breath sounds, no respiratory distress Cardiovascular: regular rate, rhythm, no edema Abdomen / GI: normal bowel sounds, non tender Diagnosis left ureteral stricture ASA Classification: ASA Class III Plan of Treatment plan routine stent change cipro 500mg pre-op oral dose
--- NOTE | 2017-10-16 12:54 | [facility] Operative Report ---
Operative Report Operative Date Oct 16, 2017. Pre-Operative Diagnosis left ureteral stricture Post-Operative Diagnosis same Procedure(s) Performed cysto with exchange of left ureteral stricture Surgeon Juanita Executive Legal Secretary Surgeon(s) none Estimated Blood Loss 0mL Findings tortuous left ureter Fluids none Specimens none Drains 6 fr 22-32 centimeter 6 fr double J stent Anesthesia none Complication(s) None Disposition Recovery Room / PACU Indications left ureteral stricture managed for years with stent Description of Procedure Patient was placed in low lithotomy position. His genitals were prepped and draped in sterile fashion. Time out held with team. I placed a 21 fr rigid cystoscope to bladder. The urethra is unremarkable. The prostate is trilobar occlusive but short. The UOs are in normal location. I carefully inspected bladder and see no tumor no inflammation to explain his recurrent hematuria. Stent is clean. I grasped left stent tip and withdrew to the meatus. I placed a road runner wire up left ureter through stent. I then removed the old stent and found it to be intact. I placed a new 22-32 centimeter 6 Fr double Bard J stent easily. I concluded case. He tolerated procedure well. He transferred to recovery under my escort, in stable condition. Plan: Home today oral pain meds as needed stent change in 7-8 months ASA 3 clean contaminated case 15 seconds fluoro cipro antibiotic rehabilitation services aide I attest to the content of the Intraoperative Record and any orders documented therein. Any exceptions are noted below.
[2017-10-16 12:55] VITALS: BP 225/99; PULSE 61; TEMP 36.6; O2SAT 98
--- NOTE | 2017-10-16 12:56 | Discharge Instructions ---
Discharge Instructions Date of Service Oct 16, 2017. Admission Reason for Admission: Left Ureteral Stricture Discharge Discharge Diagnosis / Problem: left ureteral stricture Discharge Goals Goal(s): Improve function Activity Recommendations Activity Limitations: resume your previous activity Lifting Limitations: none Exercise/Sports Limitations: none May Resume Sexual Activity: when tolerated Shower/Bathe: no limitations Driving or Machine Use: no limitations . Current Hospital Diet Patient's current hospital diet: Discharge Diet Recommended Diet: AHA Diet (Heart Healthy) Procedures Procedures Performed: cysto with exchange of left ureteral stent Pending Studies Studies pending at discharge: no Medical Emergencies . Who to Call and When: Medical Emergencies: If at any time you feel your situation is an emergency, please call 911 immediately. . Non-Emergent Contact Non-Emergency issues call your: Urologist ([phone]) Call Non-Emergent contact if: temperature is above 100.5, your pain is worsening . . "Provider Documentation" section prepared by Rochelle Grant. . VTE Core Measure Inpt VTE Proph given/why not?: Treatment not indicated
--- NOTE | 2017-10-16 13:14 | DIAGNOSTIC IMAGING REPORT ---
INTRAOPERATIVE KUB 2 VIEWS CLINICAL HISTORY: LEFT STENT PLACEMENT/EXCHANGE COMPARISON STUDY: No previous studies for comparison. FINDINGS: 19 seconds of fluoroscopic time was utilized. Two Intraoperative fluoroscopic spot images are provided for interpretation. These demonstrate a double-pigtail left-sided nephroureteral stent. Also evident is an aortoiliac stent graft. IMPRESSION: A double-pigtail left-sided nephroureteral stent is visualized. Electronically signed by: Alexandru Tellez M.D. 10/16/2017 1:12 PM Dictated Date/Time: 10/16/2017 1:11 PM
[2017-10-16 13:23] VITALS: BP 172/76; PULSE 64; TEMP 36.7; O2SAT 94
== END | disposition home or self-care (01) ==
LOC: C.ACU 09:35
PROVIDERS: ATTEND Urology
DX: N35.9 Urethral stricture, unspecified (principal); I25.10 Atherosclerotic heart disease of native coronary artery without angina pectoris; E78.5 Hyperlipidemia, unspecified; I10 Essential (primary) hypertension; Z95.0 Presence of cardiac pacemaker; Z95.1 Presence of aortocoronary bypass graft; Z79.899 Other long term (current) drug therapy; Z79.82 Long term (current) use of aspirin; Z86.73 Personal history of transient ischemic attack (TIA), and cerebral infarction without residual deficits

== ENCOUNTER 2018-02-07 11:31 | Emergency (ER) | payer OTHER ==
[~2018-02-07] VITALS: Ht 180.3 cm; Wt 67.0 kg
[2018-02-07 11:31] VITALS: TEMP 36.5; Ht 180.3 cm; Wt 67.0 kg
[~2018-02-07 11:31] MED LIST changes: -ATROPINE SULFATE 0.1 MG/ML 5ML SYR IV PRN; -CIPROFLOXACIN 500 MG TAB PO SCH; -EpHEDrine SULFATE INJ 50 MG/ML AMP IV PRN; -FENTANYL CITRATE INJ 50 MCG/1 ML 2 ML VIAL IV PRN; -HYDROmorphone INJ 1 MG/ML SYR IV PRN; -LABETALOL HCL IV 5 MG/ML 20ML IV PRN; -ONDANSETRON INJ 2 MG/ML 2 ML VIAL IV PRN; -PHENYLEPHRINE 100MCG/ML 5ML SYR IV PRN
[2018-02-07] MEDS ORDERED: NITROGLYCERIN 0.4 MG SL PER TAB CHARGE SL STA ×2 (11:47→14:01)
[2018-02-07] MEDS ORDERED: NITROGLYCERIN 0.4 MG SL PER TAB CHARGE ONE (11:48)
[2018-02-07 11:50] VITALS: O2SAT 97
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
[2018-02-07 12:11] LABS: BASO % 0.3 %; BASO ABS # 0.02 K/uL (0-0.2); EOS % 1.2 %; EOS ABS # 0.08 K/uL (0-0.5); HEMATOCRIT 40.5 % (42-52); HEMOGLOBIN 13.7 g/dL (14.0-18.0); IG# 0.01 K/uL (0.00-0.02); LYMPH % 10.7 %; LYMPH ABS # 0.72 K/uL (1.2-3.4); MEAN CELL VOLUME 93.5 fL (80-100); MEAN CORPUSCULAR HEMOGLOBIN 31.6 pg (25-34); MEAN CORPUSCULAR HGB CONC 33.8 g/dl (32-36); MONO % 7.7 %; MONO ABS # 0.52 K/uL (0.11-0.59); NEUT ABS # 5.36 K/uL (1.4-6.5); PLATELET COUNT 145 K/uL (130-400); RED CELL DISTRIBUTION WIDTH CV 14.4 % (11.5-14.5); RED CELL DISTRIBUTION WIDTH SD 48.9 fL (36.4-46.3); WHITE BLOOD COUNT 6.71 K/uL (4.8-10.8)
[2018-02-07 12:19] LABS: ISTAT CREATININE 1.3 mg/dl (0.6-1.3); ISTAT IONIZED CALCIUM 1.2 mmol/l (1.12-1.32); ISTAT POTASSIUM 4.4 mEq/L (3.3-5.0)
[2018-02-07 12:20] LABS: PTT PATIENT 29.8 SECONDS (21.0-31.0)
[2018-02-07 12:29] LABS: BLOOD UREA NITROGEN 29 mg/dl (7-18); CALCIUM 9.3 mg/dl (8.5-10.1); CARBON DIOXIDE 24 mmol/L (21-32); CREATININE 1.32 mg/dl (0.60-1.40); GLUCOSE 91 mg/dl (70-99); POTASSIUM 4.2 mmol/L (3.5-5.1); SODIUM 137 mmol/L (136-145)
[2018-02-07] MEDS ORDERED: OPTIRAY 320 IV PRN (12:30)
--- NOTE | 2018-02-07 12:56 | DIAGNOSTIC IMAGING REPORT ---
CT ANGIOGRAM OF THE CHEST CLINICAL HISTORY: Atypical chest pain. COMPARISON STUDY: Chest x-ray dated 02/07/2018. CT angiogram of the chest and abdomen dated 12/04/2015. TECHNIQUE: Following the IV administration of 94 cc of Optiray 320, CT angiogram of the chest was performed from the upper abdomen to the thoracic inlet utilizing the pulmonary embolus protocol. Images are reviewed in the axial, sagittal, and coronal planes. 3-D MIPS images are created and assessed. IV contrast was administered without complication. A dose lowering technique was utilized adhering to the principles of ALARA. CT DOSE: 264.04 mGy.cm FINDINGS: Thyroid: Imaged portions of the thyroid gland are normal in size and attenuation. Thoracic aorta: There is advanced atherosclerotic calcification of the thoracic aorta, which is normal in caliber and demonstrates standard 3-vessel arch anatomy. No dissection is seen. Pulmonary vasculature: The main pulmonary arteries are dilated suggesting pulmonary artery hypertension. There are no filling defects identified in main, lobar, or segmental pulmonary branches to suggest pulmonary embolus. Heart: The patient is status post midline sternotomy. The heart is enlarged and without pericardial effusion. The coronary arteries are densely calcified. A 2-lead cardiac pacemaker is seen in the left chest wall. Lungs and pleural spaces: Advanced emphysema is identified. There is no airspace consolidation or pleural effusion. Dependent atelectasis is present the lung bases. Layering secretions are seen in the trachea. Fluid/secretions is also seen within the dependent lower lobe airways. Mediastinum: There are numerous subcentimeter mediastinal lymph nodes. These are not pathologically enlarged by size criteria. Janay: Clear. Axillae: There is no axillary lymphadenopathy. Upper abdomen: A stent graft is noted in the upper abdominal aorta. There is a saccular aneurysm seen above the stent graft and just below the esophageal hiatus. This measures 5.4 x 7.1 cm and has modestly increased in size from 2016. A 2.3 cm lobulation of the aneurysm sac projects inferiorly end is partially visualized on image #2. This was not seen in 2016. Faint stranding is questioned around the aneurysm sac. A small calcified gallstone is suspected on image #1. Cysts are present in the upper poles of the partially imaged kidneys. The largest measure up to 4 cm. Skeletal structures: The skeletal structures are osteopenic. Arthritic change is seen in the shoulders and thoracic spine. No lytic or blastic bony lesions are seen. IMPRESSION: 1. There is no evidence of pulmonary embolus in the main, lobar, or segmental pulmonary arteries. 2. 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 This measures 5.4 x 7.1 cm and has modestly increased in size as compared to the 12/04/2015 examination. There is a partially imaged lobulation along the inferior margin of the aneurysm sac which was not clearly seen previously. Mild stranding is suggested around the aneurysm sac, and the findings are concerning for impending rupture. There is no evidence of extravasation on the provided images. 3. Advanced emphysema. 4. Cardiomegaly and cardiac pacemaker. 5. There is no airspace consolidation or pleural effusion. 6. Fluid/secretions are present in the lower lobe airways. This is nonspecific and could be seen in the setting of aspiration. Clinical correlation will be required. 7. Additional findings as above. Electronically signed by: Harjeet Aj M.D. 02/07/2018 12:55 PM Dictated Date/Time: 02/07/2018 12:38 PM
[2018-02-07] MEDS ORDERED: LABETALOL HCL IV 5 MG/ML 20ML IV STA ×3 (13:08→14:03)
[2018-02-07] MEDS ORDERED: FUROSEMIDE INJ 40 MG in SYRINGE 0 ML IV ONE (14:15)
[2018-02-07 15:29] VITALS: BP 168/78; PULSE 78; O2SAT 97
== END 2018-02-07 15:46 | disposition short-term general hospital (02) ==
LOC: C.EDB 11:31 → C.EDA 15:46
DX: I71.4 Abdominal aortic aneurysm, without rupture (principal); I25.10 Atherosclerotic heart disease of native coronary artery without angina pectoris; K57.30 Diverticulosis of large intestine without perforation or abscess without bleeding; I25.2 Old myocardial infarction; Q24.8 Other specified congenital malformations of heart; Z86.73 Personal history of transient ischemic attack (TIA), and cerebral infarction without residual deficits; E78.5 Hyperlipidemia, unspecified; I10 Essential (primary) hypertension; Z95.0 Presence of cardiac pacemaker; I71.2 Thoracic aortic aneurysm, without rupture; Z95.1 Presence of aortocoronary bypass graft; Z82.49 Family history of ischemic heart disease and other diseases of the circulatory system; F17.210 Nicotine dependence, cigarettes, uncomplicated; Z79.82 Long term (current) use of aspirin; Z79.899 Other long term (current) drug therapy; Z88.8 Allergy status to other drugs, medicaments and biological substances

== ENCOUNTER 2018-03-05 20:51 | Emergency (ER) | payer OTHER ==
[~2018-03-05 20:51] MED LIST changes: -cephalexin PO
[2018-03-05] MEDS ORDERED: MoRPHine SULFATE 4 MG/ML 1 ML CARP\\VIAL IV STA (21:10)
[2018-03-05 21:34] LABS: BASO % 0.1 %; BASO ABS # 0.01 K/uL (0-0.2); EOS % 1.8 %; EOS ABS # 0.13 K/uL (0-0.5); HEMATOCRIT 35.8 % (42-52); HEMOGLOBIN 12.3 g/dL (14.0-18.0); IG# 0.01 K/uL (0.00-0.02); LYMPH % 13.4 %; LYMPH ABS # 0.95 K/uL (1.2-3.4); MEAN CELL VOLUME 91.8 fL (80-100); MEAN CORPUSCULAR HEMOGLOBIN 31.5 pg (25-34); MEAN CORPUSCULAR HGB CONC 34.4 g/dl (32-36); MEAN PLATELET VOLUME 10.2 fL (7.4-10.4); MONO % 9.2 %; MONO ABS # 0.65 K/uL (0.11-0.59); NEUT % 75.4 %; NEUT ABS # 5.32 K/uL (1.4-6.5); PLATELET COUNT 147 K/uL (130-400); RED CELL DISTRIBUTION WIDTH CV 14.4 % (11.5-14.5); RED CELL DISTRIBUTION WIDTH SD 48.5 fL (36.4-46.3); WHITE BLOOD COUNT 7.07 K/uL (4.8-10.8)
--- NOTE | 2018-03-05 21:44 | DIAGNOSTIC IMAGING REPORT ---
SINGLE VIEW CHEST CLINICAL HISTORY: Fever. Sepsis. FINDINGS: 2 AP, portable, upright chest radiographs are compared to chest x-ray and chest CT dated 02/07/2018. The examination is degraded by portable technique and patient rotation. A 2-lead cardiac pacemaker is unchanged in position. The patient is status post midline sternotomy. The heart is enlarged and there is atherosclerotic calcification of the thoracic aorta. The pulmonary vasculature is noncongested. Emphysema and chronic interstitial thickening are similar to previous. No airspace consolidation or large pleural effusion is identified. No pneumothorax is seen. The skeletal structures are osteopenic. The bony thorax is grossly intact. An aortic stent graft is noted in the upper abdomen. IMPRESSION: 1. Cardiomegaly and cardiac pacemaker. There is no radiographic evidence of congestive failure. 2. Emphysema. 3. There is no airspace consolidation or pleural effusion identified. Electronically signed by: Harjeet Aj M.D. 03/05/2018 9:42 PM Dictated Date/Time: 03/05/2018 9:41 PM
[2018-03-05 21:47] VITALS: TEMP 36.9
[2018-03-05 21:49] VITALS: O2SAT 94
[2018-03-05 21:49] LABS: PTT PATIENT 29.4 SECONDS (21.0-31.0)
[2018-03-05 21:51] LABS: ALBUMIN 3.3 gm/dl (3.4-5.0); ALT/SGPT 22 U/L (12-78); BLOOD UREA NITROGEN 35 mg/dl (7-18); CALCIUM 8.9 mg/dl (8.5-10.1); CARBON DIOXIDE 24 mmol/L (21-32); GLUCOSE 99 mg/dl (70-99); LIPASE 227 U/L (73-393); POTASSIUM 4.3 mmol/L (3.5-5.1); SODIUM 137 mmol/L (136-145)
[2018-03-05] MEDS ORDERED: CEPH-570 PO (22:05)
[2018-03-05 22:09] LABS: ALKALINE PHOSPHATASE 86 U/L (45-117); AST/SGOT 18 U/L (15-37); CKMB 2.9 ng/ml (0.5-3.6); TOTAL PROTEIN 6.9 gm/dl (6.4-8.2)
[2018-03-05] MEDS ORDERED: ATV5X PO (22:09)
[2018-03-05] MEDS ORDERED: OXYC-609 PO (22:09)
--- NOTE | 2018-03-05 23:12 | EMERGENCY ROOM VISIT NOTE ---
History Report prepared by Mary: Tony Noel Under the Supervision of: Dr. Luis Manuel Acevedo D.O. First contact with patient: 21:05 Chief Complaint: CARDIAC ASSESSMENT Stated Complaint: DR THINKS HAVING HEART ATTACK History of Present Illness The patient is a 78 year old male who presents to the Emergency Room with complaints of a worsening chest pain that radiates into his back that began 5 hours ago. He rates this pain as 8/10. Per the family, the patient was seen at [facility] for evaluation of a heart and groin aneurysm (7 cm and 4 cm per family ). The patient was first at [facility] today, had a CT scan done, and was then sent to [facility]. He has had 17 surgeries on his veins and a stent and is a high risk surgery candidate per Dr. Sandoval ([facility]). He has taken 3 Oxycodone prior to arrival and was referred to the ED by Dr. Sandoval for stronger pain medication. Source of History: patient, family Onset: 5 hours ago Position: chest, other (radiates into back) Symptom Intensity: pain rated as 8/10 Timing: worsening Modifying Factors (Relieving): other (minimal improvement with Oxycodone) Review of Systems See HPI for pertinent positives & negatives. A total of 10 systems reviewed and were otherwise negative. 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 (14) Pacemaker (15) Thoracic aortic aneurysm (16) Unilateral inguinal hernia Surgical Problems: (1) Hx of CABG (2) Hx of CABG (3) S/P AAA repair Family History Heart disease Social History Smoking Status: Current Every Day Smoker Drug Use: none Marital Status: Housing Status: lives with significant other Occupation Status: retired Current/Historical Medications Scheduled Acetaminophen (Tylenol), 1-3 TABS PO PRN Aspirin (Aspir-81), 81 MG PO QPM Cephalexin (Keflex), 1 TAB PO TID Enteral Nutrition Formula (Ensure Plus Vanilla), 1 CAN PO TIDM Lorazepam (Lorazepam), 0.5 MG PO PRN Oxycodone HCl (Oxycodone HCl), 5 MG PO PRN UD Sildenafil Citrate (Viagra), 50 MG PO PRN Umeclidinium-Vilanterol (Anoro Ellipta 62.5-25 Mcg/INH), 1 PUFF INH BID Scheduled PRN Albuterol Hfa (Ventolin Hfa), 1-2 PUFFS INH Q4 PRN for SOB/Wheezing Nitroglycerin (Nitrostat), 0.4 MG UT UD PRN for Chest Pain Allergies Coded Allergies: Simvastatin (Verified Adverse Reaction, Unknown, N&V, 02/07/18) Physical Exam Vital Signs Date Time Temp Pulse Resp B/P (MAP) Pulse Ox O2 Delivery O2 Flow Rate FiO2 03/05/18 22:35 60 20 198/86 95 Room Air 03/05/18 22:30 63 15 96 Room Air 03/05/18 22:00 62 15 93 Room Air 03/05/18 21:49 94 Room Air 03/05/18 21:49 94 Room Air 03/05/18 21:47 36.9 79 12 173/80 94 Room Air 03/05/18 21:38 63 03/05/18 20:58 86 19 197/97 92 Room Air Physical Exam CONSTITUTIONAL/VITAL SIGNS: Reviewed / noted above. GENERAL: Non-toxic in appearance. Appears uncomfortable. INTEGUMENTARY: Warm, dry, and [place]. HEAD: Normocephalic. EYES: without scleral icterus or trauma. ENT/OROPHARYNX: clear and moist. LYMPHADENOPATHY/NECK: Is supple without lymphadenopathy or meningismus. RESPIRATORY: Lungs clear and equal. CARDIOVASCULAR: Regular rate and rhythm. GI/ABDOMEN: Soft and nontender. No organomegaly or pulsatile mass. No rebound or guarding. Normal bowel sounds. EXTREMITIES: Warm and well perfused. BACK: No CVA tenderness. NEUROLOGICAL: Intact without focal deficits. PSYCHIATRIC: normal affect. MUSCULOSKELETAL: Normally developed with good muscle tone. Medical Decision & Procedures ER Provider Diagnostic Interpretation: Radiology results as stated below per my review and radiologist interpretation: SINGLE VIEW CHEST CLINICAL HISTORY: Fever. Sepsis. FINDINGS: 2 AP, portable, upright chest radiographs are compared to chest x-ray and chest CT dated 02/07/2018. The examination is degraded by portable technique and patient rotation. A 2-lead cardiac pacemaker is unchanged in position. The patient is status post midline sternotomy. The heart is enlarged and there is atherosclerotic calcification of the thoracic aorta. The pulmonary vasculature is noncongested. Emphysema and chronic interstitial thickening are similar to previous. No airspace consolidation or large pleural effusion is identified. No pneumothorax is seen. The skeletal structures are osteopenic. The bony thorax is grossly intact. An aortic stent graft is noted in the upper abdomen. IMPRESSION: 1. Cardiomegaly and cardiac pacemaker. There is no radiographic evidence of congestive failure. 2. Emphysema. 3. There is no airspace consolidation or pleural effusion identified. Electronically signed by: Harjeet Aj M.D. 03/05/2018 9:42 PM Dictated Date/Time: 03/05/2018 9:41 PM Laboratory Results 03/05/18 21:20 Red Blood Count 3.90, Mean Corpuscular Volume 91.8, Mean Corpuscular Hemoglobin 31.5, Mean Corpuscular Hemoglobin Concent 34.4, Mean Platelet Volume 10.2, Neutrophils (%) (Auto) 75.4, Lymphocytes (%) (Auto) 13.4, Monocytes (%) (Auto) 9.2, Eosinophils (%) (Auto) 1.8, Basophils (%) (Auto) 0.1, Neutrophils # (Auto) 5.32, Lymphocytes # (Auto) 0.95, Monocytes # (Auto) 0.65, Eosinophils # (Auto) 0.13, Basophils # (Auto) 0.01 03/05/18 21:20 Test 03/05/18 21:20 White Blood Count 7.07 K/uL (4.8-10.8) Red Blood Count 3.90 M/uL (4.7-6.1) Hemoglobin 12.3 g/dL (14.0-18.0) Hematocrit 35.8 % (42-52) Mean Corpuscular Volume 91.8 fL (80-100) Mean Corpuscular Hemoglobin 31.5 pg (25-34) Mean Corpuscular Hemoglobin Concent 34.4 g/dl (32-36) Platelet Count 147 K/uL (130-400) Mean Platelet Volume 10.2 fL (7.4-10.4) Neutrophils (%) (Auto) 75.4 % Lymphocytes (%) (Auto) 13.4 % Monocytes (%) (Auto) 9.2 % Eosinophils (%) (Auto) 1.8 % Basophils (%) (Auto) 0.1 % Neutrophils # (Auto) 5.32 K/uL (1.4-6.5) Lymphocytes # (Auto) 0.95 K/uL (1.2-3.4) Monocytes # (Auto) 0.65 K/uL (0.11-0.59) Eosinophils # (Auto) 0.13 K/uL (0-0.5) Basophils # (Auto) 0.01 K/uL (0-0.2) RDW Standard Deviation 48.5 fL (36.4-46.3) RDW Coefficient of Variation 14.4 % (11.5-14.5) Immature Granulocyte % (Auto) 0.1 % Immature Granulocyte # (Auto) 0.01 K/uL (0.00-0.02) Prothrombin Time 10.3 SECONDS (9.0-12.0) Prothromb Time International Ratio 1.0 (0.9-1.1) Activated Partial Thromboplast Time 29.4 SECONDS (21.0-31.0) Partial Thromboplastin Ratio 1.1 Urine Color YELLOW Urine Appearance CLEAR (CLEAR) Urine pH 7.0 (4.5-7.5) Urine Specific [place] 1.018 (1.000-1.030) Urine Protein 2+ (NEG) Urine Glucose (UA) NEG (NEG) Urine Ketones NEG (NEG) Urine Occult Blood NEG (NEG) Urine Nitrite NEG (NEG) Urine Bilirubin NEG (NEG) Urine Urobilinogen NEG (NEG) Urine Leukocyte Esterase TRACE (NEG) Urine WBC (Auto) 1-5 /hpf (0-5) Urine RBC (Auto) 5-10 /hpf (0-4) Urine Hyaline Casts (Auto) 1-5 /lpf (0-5) Urine Epithelial Cells (Auto) 10-20 /lpf (0-5) Urine Bacteria (Auto) NEG (NEG) Anion Gap 7.0 mmol/L (3-11) Estimated GFR () 50.6 Estimated GFR (Non- 43.7 BUN/Creatinine Ratio 23.1 (10-20) Calcium Level 8.9 mg/dl (8.5-10.1) Total Bilirubin 0.3 mg/dl (0.2-1) Direct Bilirubin < 0.1 mg/dl (0-0.2) Aspartate Amino Transf (AST/SGOT) 18 U/L (15-37) Alanine Aminotransferase (ALT/SGPT) 22 U/L (12-78) Alkaline Phosphatase 86 U/L (45-117) Total Creatine Kinase 62 U/L (39-308) Creatine Kinase MB 2.9 ng/ml (0.5-3.6) Creatine Kinase MB Ratio 4.7 (0-3.0) Troponin I < 0.015 ng/ml (0-0.045) Total Protein 6.9 gm/dl (6.4-8.2) Albumin 3.3 gm/dl (3.4-5.0) Lipase 227 U/L (73-393) Laboratory results as stated above per my review. Medications Administered Medications (Trade) Dose Ordered Sig/Chelsey Route Start Time Stop Time Status Last Admin Dose Admin Morphine Sulfate (MoRPHine SULFATE INJ) 4 mg NOW STAT IV 03/05/18 21:10 03/05/18 21:11 DC 03/05/18 21:29 4 MG ECG Per My Interpretation Indication: chest pain Rate (beats per minute): 88 Rhythm: other (atrial paced rhythm) Findings: no ectopy, other (No ST elevation) ED Course 2104: Previous medical records were reviewed. The patient was evaluated in room C3. A complete history and physical examination was performed. 2109: Morphine Sulfate Inj, 4 mg, IV. 2299: I checked on the patient and he is resting comfortably. 2314: On reevaluation, the patient is resting. I discussed the results and findings with the patient. He verbalized agreement of the treatment plan. He was discharged home. Medical Decision the differential was considered includes acute myocardial infarction, acute coronary syndrome, myocarditis, pericarditis, pericardial effusions /tamponade, esophageal perforation, thoracic aortic dissection, pulmonary embolism, pneumonia, pneumothorax, pancreatitis, shingles, acute cholecystitis, perforated abdominal viscus. This is a 78-year-old male who presents to the ED with a chief complaint of chest and back pain. The patient has an aneurysm that is likely going to rupture soon. He states that he was at [facility] about 1 month ago for the same symptoms. They told him that he was not a surgical candidate and that he would likely within the 24-48 hours. He has survived. He states that he is going to set himself up with hospice tomorrow. The patient has no other specific complaints. His exam was relatively unremarkable. He did seem to be somewhat uncomfortable. An EKG shows an atrial paced rhythm at a rate of 88. CBC and chemistry panel was unremarkable, troponin was negative and urine did not show infection. The patient was noted to be hypertensive. This may be related to his pain. The patient was told the results of the test. He was treated with IV morphine for pain and the symptoms did improve with this. He desires to go home. Medication Reconcilliation Current Medication List: was personally reviewed by me Blood Pressure Screening Patient's blood pressure: Elevated blood pressure Blood pressure disposition: Elevated BP felt to be situational Impression Primary Impression: Chest pain Additional Impressions: Back pain Aorta aneurysm Scribe Attestation The scribe's documentation has been prepared under my direction and personally reviewed by me in its entirety. I confirm that the note above accurately reflects all work, treatment, procedures, and medical decision making performed by me. Departure Information Dispostion Home / Self-Care Referrals No Doctor, Assigned (PCP) Patient Instructions My [facility] Additional Instructions Follow-up with your doctor for further care and evaluation in 1-2 days. Return to the emergency department for worsening or new symptoms or any concerns. You have been examined and treated today on an emergency basis only. This is not a substitute for, or an effort to provide, complete comprehensive medical care. It is impossible to recognize and treat all injuries or illnesses in a single emergency department visit. It is therefore important that you follow up closely with your doctor. Call as soon as possible for an appointment. Problem Qualifiers
[2018-03-05 23:30] VITALS: BP 183/86; PULSE 74; O2SAT 94
== END 2018-03-05 23:30 | disposition home or self-care (01) ==
LOC: C.EDB 20:52 → C.EDC 23:30
DX: R07.9 Chest pain, unspecified (principal); M54.9 Dorsalgia, unspecified; I71.9 Aortic aneurysm of unspecified site, without rupture; I25.10 Atherosclerotic heart disease of native coronary artery without angina pectoris; I25.2 Old myocardial infarction; Z86.73 Personal history of transient ischemic attack (TIA), and cerebral infarction without residual deficits; E78.5 Hyperlipidemia, unspecified; I10 Essential (primary) hypertension; Z82.49 Family history of ischemic heart disease and other diseases of the circulatory system; F17.200 Nicotine dependence, unspecified, uncomplicated; Z79.82 Long term (current) use of aspirin; Z88.8 Allergy status to other drugs, medicaments and biological substances; J43.9 Emphysema, unspecified